=== PATIENT | male | born 1955 | race Caucasian/White ===

== ENCOUNTER 2021-08-20 06:45 | Outpatient (REF) | payer OTHER, SELFPAY ==
--- NOTE | ~2021-08-20 | XR_ITS ---
EXAMINATION: XR CHEST CLINICAL INFORMATION: Bump on anterior chest. COMPARISON: Most recent chest radiograph dated 06/16/2019 TECHNIQUE: 2 views of the chest were obtained. FINDINGS: No airspace consolidation. No pleural effusion or pneumothorax. No acute osseous abnormality. No abnormal soft tissue calcification or radiopaque foreign body. No significant findings in the region of the overlying marker. XR/XR chest 2V IMPRESSION: Unremarkable examination.
[2021-08-20 07:54] LABS: Alanine Aminotransferase 16 U/L (0-40); Albumin Level 4.2 g/dL (3.5-5.0); Alkaline Phosphatase 43 U/L (39-117); Anion Gap 10 (12-20); Aspartate Amino Transferase 18 U/L (5-37); Bilirubin Total 0.8 mg/dL (0.0-1.0); Blood Urea Nitrogen 17 mg/dL (9-16); Calcium 9.3 mg/dL (8.4-10.2); Carbon Dioxide 29 mmol/L (22-29); Chloride 106 mmol/L (96-108); Cholesterol 192 mg/dL; Estimated Glomerular Filt Rate > 60; Glucose Fasting 104 mg/dL (60-99); HDL Cholesterol 79 mg/dL; LDL Cholesterol Calculated 101 mg/dl; Potassium 4.1 mmol/L (3.3-5.1); Sodium 141 mmol/L (135-145); Total Protein 6.3 g/dL (6.5-8.0); Triglycerides 63 mg/dL
[2021-08-20 08:24] LABS: TSH reflex Free T4 3.23 uIU/mL (0.32-4.0)
[2021-08-20 09:31] LABS: Prostate Specific Antigen Scr 1.31 ng/mL (<0.05-4.0)
== END 2021-08-20 06:46 | disposition home or self-care (01) ==
LOC: HO.LAB 06:45
PROVIDERS: PCP Family Medicine; Visit Provider Family Medicine
DX: Z00.00 Encounter for general adult medical examination without abnormal findings (principal); Z12.5 Encounter for screening for malignant neoplasm of prostate; R22.2 Localized swelling, mass and lump, trunk
CPT/HCPCS: 36415; 71046; 80053; 80061; 84153; 84443

== ENCOUNTER 2021-09-02 07:04 | Outpatient (REF) | payer OTHER, SELFPAY ==
[2021-09-02 08:36] LABS: Estimated Average Glucose 100 mg/dL; Hemoglobin A1c % 5.1 %
[2021-09-02 08:59] LABS: Alanine Aminotransferase 18 U/L (0-40); Albumin Level 4.2 g/dL (3.5-5.0); Alkaline Phosphatase 42 U/L (39-117); Anion Gap 10 (12-20); Aspartate Amino Transferase 21 U/L (5-37); Bilirubin Total 0.6 mg/dL (0.0-1.0); Blood Urea Nitrogen 19 mg/dL (9-16); Calcium 9.5 mg/dL (8.4-10.2); Carbon Dioxide 31 mmol/L (22-29); Chloride 106 mmol/L (96-108); Estimated Glomerular Filt Rate > 60; Glucose Fasting 95 mg/dL (60-99); Potassium 4.5 mmol/L (3.3-5.1); Sodium 142 mmol/L (135-145); Total Protein 6.5 g/dL (6.5-8.0)
== END 2021-09-02 07:05 | disposition home or self-care (01) ==
LOC: HO.LAB 07:04
PROVIDERS: PCP Family Medicine; Visit Provider Family Medicine
DX: Z00.00 Encounter for general adult medical examination without abnormal findings (principal); R73.01 Impaired fasting glucose
CPT/HCPCS: 36415; 80053; 83036

== ENCOUNTER 2022-08-19 06:04 | Outpatient (REF) | payer MEDICARE, OTHER, SELFPAY ==
[2022-08-19 08:22] LABS: Estimated Average Glucose 100 mg/dL; Hemoglobin A1c % 5.1 %
[2022-08-19 08:30] LABS: Alanine Aminotransferase 16 U/L (0-40); Albumin Level 4.3 g/dL (3.5-5.0); Alkaline Phosphatase 45 U/L (39-117); Anion Gap 16 (12-20); Aspartate Amino Transferase 21 U/L (5-37); Bilirubin Total 0.9 mg/dL (0.0-1.0); Blood Urea Nitrogen 19 mg/dL (9-16); Calcium 9.4 mg/dL (8.4-10.2); Carbon Dioxide 27 mmol/L (22-29); Chloride 103 mmol/L (96-108); Cholesterol 182 mg/dL; Estimated Glomerular Filt Rate > 60; Glucose Fasting 98 mg/dL (60-99); HDL Cholesterol 73 mg/dL; LDL Cholesterol Calculated 91 mg/dl; Potassium 4.2 mmol/L (3.3-5.1); Sodium 142 mmol/L (135-145); Total Protein 6.9 g/dL (6.5-8.0); Triglycerides 90 mg/dL
[2022-08-19 08:34] LABS: TSH reflex Free T4 4.05 uIU/mL (0.32-4.0)
[2022-08-19 09:26] LABS: Free T4 (Free Thyroxine) 0.92 ng/dL (0.71-1.85)
== END 2022-08-19 06:05 | disposition home or self-care (01) ==
LOC: HO.LAB 06:04
PROVIDERS: PCP Family Medicine; Visit Provider Family Medicine
DX: Z00.00 Encounter for general adult medical examination without abnormal findings (principal); R73.01 Impaired fasting glucose
CPT/HCPCS: 36415; 80053; 80061; 83036; 84439; 84443

== ENCOUNTER 2022-08-20 09:57 | Outpatient (REF) | payer MEDICARE, OTHER, SELFPAY ==
[2022-08-20 15:11] LABS: Urine Cytology See Pathology rpt
[2022-08-20 15:29] LABS: Appearance Urine Clear; Color Urine Yellow; Glucose Urine UA Negative (Negative); Leukocyte Esterase Urine Negative (Negative); Nitrite Urine Negative (Negative); Specific Gravity - Urine 1.015 (1.005-1.025); Urine Blood Negative (Negative); Urine Ketones Negative (Negative); Urine Protein Negative (Neg-Trace)
== END 2022-08-20 09:58 | disposition home or self-care (01) ==
LOC: HO.LAB 09:57
PROVIDERS: Visit Provider Family Medicine
DX: Z00.00 Encounter for general adult medical examination without abnormal findings (principal); R35.0 Frequency of micturition
CPT/HCPCS: 81003; 87086; 88112

== ENCOUNTER 2022-09-15 08:17 | Outpatient (REF) | payer MEDICARE, OTHER, SELFPAY ==
[2022-09-15 10:13] LABS: Free T4 (Free Thyroxine) 0.89 ng/dL (0.71-1.85); Thyroid Stimulating Hormone 1.89 uIU/mL (0.32-4.0)
[2022-09-16 18:47] LABS: Triiodothyronine T3 Total 90 ng/dL (76-181)
== END 2022-09-15 08:18 | disposition home or self-care (01) ==
LOC: HO.LAB 08:17
PROVIDERS: PCP Family Medicine; Visit Provider Family Medicine
DX: E03.9 Hypothyroidism, unspecified (principal)
CPT/HCPCS: 36415; 84439; 84443; 84480

== ENCOUNTER 2024-03-15 13:57 | Outpatient (AMB) | payer MEDICARE, OTHER, SELFPAY ==
[2024-03-15 14:06] VITALS: BP 118/66; PULSE 55; O2SAT 97; BMI 23.6
--- NOTE | 2024-03-15 14:06 | A.OFFPC_ITS ---
Vital Signs 03/15/24 14:06 Height 6 ft 1 in Weight 179 lb BMI 23.6 BP 118/66 Blood Pressure Location Rt brachial Position Sitting Pulse 55 Pulse Source Pulse Oximeter Pulse Oximetry (%) 97 Oxygen Delivery Method Room Air Intake Visit Reasons: PE Intake Note: Patient is here for his physical today. Patient would like to discuss prostate problems, urinating more than usual. Allergies cat dander [CATS] Allergy (Unknown, Verified 03/15/24 14:09) RED EYES,DIFF BREATHING Medication List - Last Reconciled 03/15/24 by Lazaro Fields MD ascorbic acid (vitamin C) 1 g PO Q6H cholecalciferol (vitamin D3) 50 mcg PO DAILY Tobacco use date assessed: 03/15/24 Fall risk assessment: No Falls in past year Last assessed Fall Risk: 03/15/24 Dental Screening Dental Screen Date: 03/15/24 Did you have a dental visit in the last 12 months?: Yes Did you have a dental problem in the last 6 months where you did not have access to dental care?: No Was dental information given to patient?: Patient has dentist HPI PE HPI Details 68 y/o male presents for an extended exa m with f/u labs and health maint. No recent labs to review. Hx of elevated fasting glucose. A1c today 03/15/24 6.0%. Pt notes changes in his urinary patterns - he notes some increased urinary frequency and changes to his stream. He notes he is due for a colonoscopy. COUNT INCLUDES THE [facility] Surgical History History of appendectomy History of tonsillectomy and adenoidectomy Social History Housing: Condominium Patient Tobacco Use Status: Never used Tobacco e-Cigarette/Vaping Use: Never Used Second Hand Smoke Exposure: No service: No Current occupational status: retired Current occupational exposures/hazards: No Cognitive needs: No Hearing needs: No Vision needs: No Questionnaire PHQ-9 Over the last 2 weeks, how often have you been bothered by any of the following problems? 1. Little interest or pleasure in doing things: not at all 2. Feeling down, depressed, or hopeless: not at all 3. Trouble falling or staying asleep, or sleeping too much: not at all 4. Feeling tired or having little energy: not at all 5. Poor appetite or overeating: not at all 6. Feeling bad about yourself - or that you are a failure or have let yourself or your family down: not at all 7. Trouble concentrating on things, such as reading the newspaper or watching television: not at all 8. Moving or speaking so slowly that other people could have noticed. Or the opposite - being so fidgety or restless that you have been moving around a lot more than usual: not at all 9. Thoughts that you would be better off or of hurting yourself in some way: not at all Total score: 0 Depression Screening Interpretation: Negative Depression Screening Done: Yes 67688 - PHQ-9 Billing: Yes Source: Developed by Drs. Gurpreet Coe, Shahnaz Garcia, Brandon Otto and colleagues, with an educational anthony from [employer]. Thrive Questionnaire Date Thrive assessed: 03/15/24 I am a: Patient What is your living situation today?: I have a steady place to live Within the past 12 months, did the food you bought not last and you didn't have the money to get more?: Never true Within the past 12 months, did you worry whether your food would run out before you got money to buy more?: Never true Do you have trouble paying for medicines?: No Do you have trouble getting transportation to medical appointments?: No Do you have trouble paying your heating and electricity bill?: No Do you have trouble taking care of your child, family member or friend?: No Do you have trouble with day-to-day activities such as bathing, preparing meals, shopping, managing finances, etc.?: No Are you currently unemployed and looking for a job?: No Are you interested in more education?: No THRIVE Score: 0 AUDIT C Alcohol Use Questionnaire (AUDIT-C) 1. How often do you have a drink containing alcohol?: Monthly or less 2. How many drinks containing alcohol do you have on a typical day when you are drinking?: 1 or 2 3. How often do you have six or more drinks on one occasion?: Never Total Score: 1 TRACEE-7 AMB Questionnaire TRACEE-7 Date TRACEE - 7 assessed: 03/15/24 Feeling nervous, anxious, or on edge: 0 = Not at all Not being able to stop or control worryin = Not at all Worrying too much about different things: 0 = Not at all Trouble relaxin = Not at all Being so restless that it is hard to sit still: 0 = Not at all Becoming easily annoyed or irritable: 0 = Not at all Feeling afraid as if something awful might happen: 0 = Not at all Total TRACEE-7 score (0-4 normal; 5-9 mild; 10-14 moderate; 15-21 severe): 0 Source: Developed by Drs. Gurpreet Coe, Shahnaz Garcia, Brandon Otto and colleagues, with an educational anthony from [employer]. TRACEE-7 Assessment Billing TRACEE-7 Assessment Tool: TRACEE-7 Assessment 97575 Review of Systems Const Denies chills, Denies fatigue, Denies fever(s), Denies headache(s) and Denies we akness Eyes Denies change in vision ENT Denies dizziness, Denies headache(s), Denies hearing loss, Denies nasal congestion, Denies sinus pain, Denies sinus pressure and Denies sore throat Card Denies chest pain, Denies lightheadedness, Denies dyspnea and Denies other (palpitations) Resp Denies cough, Denies dyspnea and Denies wheezing GI Denies abdominal pain, Denies melena, Denies hematochezia, Denies change in bowel habits, Denies dyspepsia and Denies nausea Denies hematuria and Denies dysuria Musc Denies abnormal gait, Denies myalgias, Denies arthralgias, Denies numbness and Denies tingling Skin/Breast Denies rash, Denies unusual bruising and Denies wounds Neuro Denies abnormal gait, Denies dizziness, Denies headache(s), Denies memory loss, Denies numbness, Denies Sensory deficit (Neuro), Denies tingling and Denies weakness Psych Denies anxiety, Denies depression and Denies memory loss Endo Denies cold intolerance, Denies fatigue, Denies heat intolerance, Denies polydipsia and Denies polyuria Cali/Lymph Denies easy bleeding and Denies easy bruising Aller/Immun Denies wheezing Physical exam (Primary Care) Vital Signs: Last Vital Signs Pulse 55 03/15/24 14:06 BP 118/66 03/15/24 14:06 Pulse Ox 97 03/15/24 14:06 Oxygen Delivery Method Room Air 03/15/24 14:06 BMI result Body Mass Index 23.6 Tobacco/Smoking Status: Tobacco use Status Tobacco use date assessed 03/15/24 03/15/24 14:12 Patient Tobacco Use Status Never used Tobacco 03/15/24 14:08 e-Cigarette/Vaping Use Never Used 03/15/24 14:08 PHQ-9: PHQ-9 Score PHQ-9: Total score 0 03/15/24 14:21 Depression Screening Interpretation: Negative Thrive Assessment: Date of Thrive Assessment Date Thrive assessed 03/15/24 03/15/24 14:21 Const General: no acute distress, well developed, alert and awake Nutritional Appearance: well nourished Orientation/consciousness: patient oriented x3 HENMT Head: Yes normocephalic and Yes atraumatic Ears: hearing grossly normal bilaterally and TM's normal bilaterally General nose exam: Normal external nose present and Normal nares present Mouth: Normal oral and palatal mucosa present and moist mucous membranes Teeth and gingiva: dentition normal Throat: Yes posterior oropharynx normal Eyes General: appearance normal, both eyes and all related structures Pupils: Equal, round and reactive pupils present and Pupil accommodation reflex normal EOM: EOMs intact bilaterally Neck Neck: Yes normal visual inspection, Yes no lymphadenopathy and Yes trachea midline Thyroid: Thyroid normal Carotids: no bruits Lymphatic: no lymphadenopathy noted Chest Chest palpation & inspection: normal inspection of the chest Resp Effort & Inspection: normal respiratory effort Auscultation: clear to auscultation bilaterally Cardio Rate: regular rate Rhythm: regular rhythm Heart sounds: S1 normal heart sound present, S2 normal heart sound present, no gallops, no murmurs and no rubs Bruits: no abdominal aortic bruits and no carotid bruits GI Palpation (GI): No Abdominal aortic bruit present, Soft to palpation, nontender, No hepatosplenomegaly present and No Rebound tenderness present Auscultation: normal bowel sounds General: Yes no CVA tenderness Back/Spine/Pelvis Back: no CVA tenderness Cervical Spine: cervical ROM normal and No Cervical spine tenderness Thoracic/Lumbar Spine: thoraco-lumbar ROM normal, No pain with thoraco-lumbar ROM, No thoracic spinal tenderness and No lumbar spinal tenderness Skin Lesions: no lesions Rashes: no rashes Trauma: no lacerations or abrasions Wounds: no wounds Nails: normal Neuro General: patient oriented x3 Cranial nerves: Yes Equal, round and reactive pupils present Cognition (Neuro): normal cognition Gait exam (Neuro): Normal gait present Motor exam (neuro): 5/5 motor strength present throughout Sensory Exam: No Sensory deficit (Neuro) Deep tendon reflexes (DTR's): Right patellar reflex intensity grade: 2+ and Left patellar reflex intensity grade: 2+ Extrem General: Yes normal to inspection and No edema Psych Appearance: grossly normal Affect: normal affect Attitude: cooperative Thought process: Normal thought process present Results AMB Hemoglobin A1c AMB Hemoglobin A1c 6.0 % Last Edit by Silvia Cornell CMA on 03/15/24 14:38 Assessment and Plan Assessment & Plan (1) Urinary frequency: Code(s): R35.0 - Frequency of micturition (2) Pre-diabetes: Code(s): R73.03 - Prediabetes Plan: A1c?6.0%?is?pre?diabetes?range. Encouraged?diet?lower?in?sugars?and?starches Continue?a?healthy?weight?and?plenty?of?exercise Will?repeat?in?a?few?months (3) Screening for prostate cancer: Code(s): Z12.5 - Encounter for screening for malignant neoplasm of prostate Plan: PSA?has?been?elevated?in?the?past?though?his?repeat?level?was?within?normal?rang e He?is?noting?decreased?urine?stream?and?some?frequency Will?repeat?PSA?but?will?refer?patient?to?urology. Will?also?trial?tamsulosin (4) Screening for colon cancer: Code(s): Z12.11 - Encounter for screening for malignant neoplasm of colon Plan: Had?referred?patient?to?Gastroenterology?in?2 022?as?he?was?due?for?10?year?colonoscopy. Now?is?overdue Referred?him?again?to?gastroenterology?and?gave?him?phone?number. (5) Adult general medical exam: Code(s): Z00.00 - Encounter for general adult medical examination without abnormal findings Plan: 68-year-old?male?presents?for?extended?exam Orders: Orders Complete Blood Count Auto Diff Today Z00.00 - Encounter for general adult medical examination without abnormal findings Microalbumin, Random (w Creat) Today I10 - Essential (primary) hypertension TSH reflex Free T4 Today Z00.00 - Encounter for general adult medical examination without abnormal findings UA and rflx microscopic Today Z00.00 - Encounter for general adult medical examination without abnormal findings AMB Hemoglobin A1c Today Z13.9 - Encounter for screening, unspecified Comprehensive [place]. Panel Fast Today Z00.00 - Encounter for general adult medical examination without abnormal findings Lipid Panel Today Z00.00 - Encounter for general adult medical examination without abnormal findings Prostate Specific Antigen Scr Today Z12.5 - Encounter for screening for malignant neoplasm of prostate Vitamin D 25-OH Total Today E55.9 - Vitamin D deficiency, unspecified Medications: New tamsulosin 0.4 mg PO DAILY 90 days 90 caps 2RF Coding Level of Care Code Est Pt Level 4 (45408) Diagnoses Urinary frequency R35.0 Pre-diabetes R73.03 Screening for prostate cancer Z12.5 Screening for colon cancer Z12.11 Adult general medical exam Z00.00 Additional Codes TRACEE-7 Assessment Billing - TRACEE-7 Assessment Tool: TRACEE-7 Assessment 54006 ([id number])
== END 2024-03-15 15:07 | disposition home or self-care (01) ==
PROVIDERS: PCP Family Medicine; Visit Provider Family Medicine
DX: Z00.00 Encounter for general adult medical examination without abnormal findings (principal); R35.0 Frequency of micturition; R73.03 Prediabetes; Z12.5 Encounter for screening for malignant neoplasm of prostate; Z12.11 Encounter for screening for malignant neoplasm of colon
CPT/HCPCS: 83036; 99213; 99397

== ENCOUNTER 2024-03-17 06:43 | Outpatient (REF) | payer MEDICARE, OTHER, SELFPAY ==
[2024-03-17 07:01] LABS: MANUAL DIFF FLAG NO
[2024-03-17 07:16] LABS: Basophils Percent Auto 0.7 % (0-2); Eosinophils Absolute Auto 0.1 X10*3/uL (0.0-0.4); Eosinophils Percent Auto 2.5 % (0-4); Hematocrit 40.8 % (42.0-52.0); Hemoglobin 13.4 g/dl (14.0-18.0); Imm Gran Abs Auto 0.01 X10*3/uL (0.00-0.03); Imm Gran Pct Auto 0.2 % (0.0-0.4); Lymphocytes Absolute Auto 2.4 X10*3/uL (1.2-4.9); Lymphocytes Percent Auto 41.4 % (20-40); Mean Corpuscular HGB Conc 32.8 g/dl (31.0-36.0); Mean Corpuscular Volume 91.5 fL (80.0-98.0); Mean Platelet Volume 10.1 fL (9.4-12.4); Monocytes Absolute Auto 0.4 X10*3/uL (0.1-1.2); Monocytes Percent Auto 7.7 % (2-11); Neutrophils Absolute Auto 2.7 x10*3/uL (2.0-8.3); Neutrophils Percent Auto 47.5 % (45-73); Platelet Count 223 X10*3/uL (160-400); Red Blood Count 4.46 X10*6/uL (4.60-5.80); White Blood Count 5.7 X10*3/uL (4.8-10.8)
[2024-03-17 07:54] LABS: Alanine Aminotransferase 16 U/L (0-40); Albumin Level 4.2 g/dL (3.5-5.0); Alkaline Phosphatase 50 U/L (39-117); Anion Gap 14 (12-20); Aspartate Amino Transferase 19 U/L (5-37); Bilirubin Total 0.7 mg/dL (0.0-1.0); Blood Urea Nitrogen 21 mg/dL (9-16); Calcium 9.6 mg/dL (8.4-10.2); Carbon Dioxide 28 mmol/L (22-29); Chloride 103 mmol/L (96-108); Cholesterol 188 mg/dL (<200); Estimated Glomerular Filt Rate > 60; Glucose Fasting 93 mg/dL (60-99); HDL Cholesterol 70 mg/dL (>40); LDL Cholesterol Calculated 106 mg/dL (<100); Potassium 4.6 mmol/L (3.3-5.1); Sodium 140 mmol/L (135-145); Triglycerides 64 mg/dL (<150)
[2024-03-17 08:03] LABS: Prostate Specific Antigen Scr 2.02 ng/mL (<0.05-4.0)
[2024-03-17 08:13] LABS: TSH reflex Free T4 2.66 uIU/mL (0.32-4.0); Vitamin D 25-OH Total 64.7 ng/mL (>30)
[2024-03-17 09:32] LABS: Appearance Urine Clear; Color Urine Yellow; Glucose Urine UA Negative (Negative); Leukocyte Esterase Urine Negative (Negative); Nitrite Urine Negative (Negative); PH 5.5 (5.0-9.0); Urine Blood Negative (Negative); Urine Ketones Negative (Negative); Urine Protein Negative (Neg-Trace)
[2024-03-17 10:11] LABS: Creatinine Urine 218.67 mg/dL
== END 2024-03-17 06:44 | disposition home or self-care (01) ==
LOC: HO.LAB 06:43
PROVIDERS: PCP Family Medicine; Visit Provider Family Medicine
DX: Z00.00 Encounter for general adult medical examination without abnormal findings (principal); Z12.5 Encounter for screening for malignant neoplasm of prostate; E55.9 Vitamin D deficiency, unspecified; I10 Essential (primary) hypertension
CPT/HCPCS: 36415; 80053; 80061; 81003; 82043; 82306; 82570; 84153; 84443; 85025

== ENCOUNTER 2024-04-12 09:29 | Outpatient (AMB) | payer MEDICARE, OTHER, SELFPAY ==
--- NOTE | 2024-04-12 09:25 | MHC.PC.OV ---
Intake Visit Reasons: f/u cpe labs Intake Note: Patient is scheduled to follow up on labs today. Allergies cat dander [CATS] Allergy (Unknown, Verified 04/12/24 09:26) RED EYES,DIFF BREATHING Tobacco use date assessed: 04/12/24 Fall risk assessment: No Falls in past year Last assessed Fall Risk: 04/12/24 Dental Screening Dental Screen Date: 03/15/24 HPI f/u cpe labs HPI Details 68 y/o male presents to f/u CPE-labs via telemedicine. Labs were drawn 03/17/24. Reviewed labs with pt. Mild anemia. Other cell lines are fine. Triglycerides 64. TC 188. LDL 106. HDL 70. HPI Comments History of Present Illness Details Documentation assistance for Lazaro Fields MD, was provided by Jose Oreilly, Hand Inserter Operator on 04/12/2024 at 10:49 AM EST. I, Dr. Fields, have read, observed, and verified documentation. [facility] Surgical History History of tonsillectomy and adenoidectomy History of appendectomy Social History Housing: Condominium Patient Tobacco Use Status: Never used Tobacco e-Cigarette/Vaping Use: Never Used Second Hand Smoke Exposure: No service: No Current occupational status: retired Current occupational exposures/hazards: No Cognitive needs: No Hearing needs: No Vision needs: No Questionnaire Thrive Questionnaire Date Thrive assessed: 03/15/24 TRACEE-7 AMB Questionnaire TRACEE-7 Date TRACEE - 7 assessed: 03/15/24 Source: Developed by Drs. Gurpreet Coe, Shahnaz Garcia, Brandon Otto and colleagues, with an educational anthony from [employer]. Physical exam (Primary Care) Tobacco/Smoking Status: Tobacco use Status Tobacco use date assessed 04/12/24 04/12/24 09:27 Patient Tobacco Use Status Never used Tobacco 04/12/24 09:27 e-Cigarette/Vaping Use Never Used 04/12/24 09:27 Thrive Assessment: Date of Thrive Assessment Date Thrive assessed 03/15/24 04/12/24 09:27 Telehealth Telehealth Telehealth Platform: Telephone Location of provider rendering services: practice address Location of patient: address on file Patient Identification confirmed using: Name, : Yes Telehealth method: voice only Patient verbally consented to treatment: Yes Patient verbally consented to billing insurance company: Yes Patient informed of any privacy concerns related to visit: Yes Minutes spent on Phone/Video with Pt.: 17 Assessment and Plan Assessment & Plan (1) Mild anemia: Code(s): D64.9 - Anemia, unspecified Plan: Mild?normocytic?anemia. His?other?cell?lines?are?within?normal?range Will?repeat?this?along?with?additional?studies?to?investigate. (2) Pre-diabetes: Code(s): R73.03 - Prediabetes Plan: A1c?was?6.0%?at?last?check?and?he?will?be?due?to?repeat?this?in?a?couple?of?months. I?advised?a?diet?lower?in?sugars?and?starches Will?follow (3) Screening for prostate cancer: Code(s): Z12.5 - Encounter for screening for malignant neoplasm of prostate Plan: PSA?is?within?normal?range He?is?having?urinary?frequency?however. Referred?to?urology (4) Urinary frequency: Code(s): R35.0 - Frequency of micturition Orders: Orders Complete Blood Count Auto Diff Today D64.9 - Anemia, unspecified, Z00.00 - Encounter for general adult medical examination without abnormal findings Reticulocyte Count Today D64.9 - Anemia, unspecified IRON PROFILE Today D64.9 - Anemia, unspecified Hemoglobin A1c Today R73.01 - Impaired fasting glucose Comprehensive [place]. Panel Fast Today R73.03 - Prediabetes, Z00.00 - Encounter for general adult medical examination without abnormal findings Referrals Urology Referral R35.0 - Frequency of micturition Coding Level of Care Code Tele Est Pt Level 2 (02081) Diagnoses Mild anemia D64.9 Pre-diabetes R73.03 Screening for prostate cancer Z12.5 Urinary frequency R35.0
== END 2024-04-12 17:37 | disposition home or self-care (01) ==
LOC: HO.HMGFM 09:29
PROVIDERS: PCP Family Medicine; Visit Provider Family Medicine
DX: D64.9 Anemia, unspecified (principal); R73.03 Prediabetes; Z12.5 Encounter for screening for malignant neoplasm of prostate; R35.0 Frequency of micturition
CPT/HCPCS: 99442

== ENCOUNTER 2024-06-07 08:54 | Outpatient (AMB) | payer MEDICARE, OTHER, SELFPAY ==
--- NOTE | 2024-06-07 08:57 | MHC.OFFVIS ---
Intake Visit Reasons: frequency of micturation Intake Note: New Patient presents for initial visit for Urinary Frequency and weak stream Urology Medications: Tamsulosin Blood Thinner: none PVR: 29ml's Sludge Control Attendant Required: No Accompanied by: Self / Same As Patient Allergies cat dander [CATS] Allergy (Unknown, Verified 06/07/24 20:39) RED EYES,DIFF BREATHING Medication List - Last Reconciled 06/07/24 by JERMAINE Barone ascorbic acid (vitamin C) 1 g PO Q6H [id number] I-[id number] 200 mcg-15 mcg- 5 mg-1 mg (PreserVision AREDS 2 Plus Multivit) caps PO tamsulosin 0.8 mg (2 x 0.4 mg) PO DAILY 90 days HPI Comments Details: Shilo is a very pleasant 69-year-old male patient of Dr. Fields. He presents to the office today as a new patient for ongoing lower urinary tract symptoms. In discussion with the patient today he reports noting ongoing issues with his urinary frequency. He reports symptoms started approximately 2 years ago with urinary frequency. He reports having followed up with his PCP at which time a urinalysis and PSA was ordered and noted to be within normal limits. He reports following up with PCP again in December in discussing weak urinary stream at which time he was started on Flomax and referral was made for urology for further assessment evaluation. He reports since initiation of Flomax with PCP he has noted an improvement in his lower urinary tract symptoms over the last 5 months. He reports significant improvement in urinary frequency throughout the day however continues with episodes of nocturia up to 4 times per night. Discussed at length potential causes for lower urinary tract patient is experiencing. In office urinalysis results reviewed with the patient today. PVR 29 mL. Discussed obtaining retroperitoneal ultrasound for further assessment evaluation. Discussed increase in Flomax verses trial of different alpha-may. He otherwise denies incontinence, hematuria, dysuria, foul smelling urine, changes to urinary stream, flank pain, fever, and or chills. In review of patient's chart it appears PSAs are as follows: 09/05 1.3, 04/08 2.0 PFSH Surgical History History of tonsillectomy and adenoidectomy History of appendectomy Social History Housing: Condominium Patient Tobacco Use Status: Never used Tobacco e-Cigarette/Vaping Use: Never Used Second Hand Smoke Exposure: No service: No Current occupational status: retired Current occupational exposures/hazards: No Cognitive needs: No Hearing needs: No Vision needs: No Review of Systems Const All systems reviewed & are unremarkable except as noted in HPI and below Physical Exam Const General: cooperative, healthy appearing, comfortable, no acute distress, well developed, alert and awake Orientation/consciousness: patient oriented x3 Limitations: no limitations HEENT Head: Yes normal to inspection, Yes normocephalic and Yes atraumatic Ears: hearing grossly normal bilaterally Eyes General: appearance normal, both eyes and all related structures Neck Neck: Yes normal visual inspection and Yes trachea midline Chest Chest palpation & inspection: normal inspection of the chest Resp Effort & Inspection: normal respiratory effort and able to speak in complete sentences Cardio Rate: regular rate GI Inspection: Yes normal to inspection General: Yes no CVA tenderness Back/Spine/Pelvis Back: no CVA tenderness Skin General skin exam: no rashes or lesions noted Neuro General: patient oriented x3 Extrem General: Yes normal to inspection Psych Appearance: grossly normal and well kempt Mental Status: mental status grossly normal Speech and movement: Normal speech and movement present and Clear speech present Affect: normal affect Attitude: cooperative Thought process: Normal thought process present Thought content: Normal thought content present Insight: Fair insight present (Psych) Judgement: Fair judgement present (Psych) Office Procedures Post Void Residual Post Residual Void Post Void Residual (PVR): 29 [id number] Void Residual by ultrasound Results AMB Urinalysis, Automated UA Leukoctes 0 Rafael/uL Last Edit by Brit Go on 06/07/24 09:12 UA Nitrite Negative Last Edit by Brit Go on 06/07/24 09:12 UA Urobilinogen 0.2 mg/dL Last Edit by Brit Go on 06/07/24 09:12 UA Protein 0 mg/dL Last Edit by Brit Go on 06/07/24 09:12 UA pH 6.0 Last Edit by Brit Go on 06/07/24 09:12 UA Blood 0 Fran/uL Last Edit by Brit Go on 06/07/24 09:12 UA Specific [place] 1.015 Last Edit by Brit Go on 06/07/24 09:12 UA Ketone Negative Last Edit by Brit Go on 06/07/24 09:12 UA Bilirubin 0 mg/dL Last Edit by Brit Go on 06/07/24 09:12 UA Glucose 0 mg/dL Last Edit by Brit Go on 06/07/24 09:12 Results Reviewed Results Reviewed: Laboratory Last Values Urine pH (Auto) 6.0 06/07/24 08:59 Specific [place] (Auto) 1.015 06/07/24 08:59 Urine Protein (Auto) 0 mg/dL 06/07/24 08:59 Glucose (UA)(Auto) 0 mg/dL 06/07/24 08:59 Urine Ketones (Auto) Negative 06/07/24 08:59 Urine Blood (Auto) 0 Fran/uL 06/07/24 08:59 Urine Nitrite (Auto) Negative 06/07/24 08:59 Urine Bilirubin (Auto) 0 mg/dL 06/07/24 08:59 Urine Urobilinogen (Auto) 0.2 mg/dL 06/07/24 08:59 Leukocyte Esterase (Auto) 0 Rafael/uL 06/07/24 08:59 Assessment & Plan Assessment & Plan (1) Urinary frequency: Code(s): R35.0 - Frequency of micturition Category: Medical Plan In office urinalysis results reviewed with the patient today; as noted above. PVR 29 mL. Will obtain retroperitoneal ultrasound for further assessment evaluation. Discussed bladder triggers/irritants. Discussed lifestyle modifications to assist with lower urinary tract symptoms patient is experiencing. Will increase Flomax to 0.8 mg daily; refill provided. Discussed possible near future in office cystoscopy if symptoms persist and/or worsen. Follow-up in 1-3 months with imaging to be completed prior; or sooner with any issues, concerns, and or questions. Orders: Orders AMB Urinalysis Automated Today Z13.9 - Encounter for screening, unspecified US retroperitoneal comp Today R35.0 - Frequency of micturition, R35.1 - Nocturia, R39.12 - Poor urinary stream AMB Post Void Residual by ultrasound Today R35.0 - Frequency of micturition Medications: Changed From tamsulosin 0.4 mg PO DAILY 90 caps 2RF 90 days To tamsulosin This is an increase in dose 0.8 mg (2 x 0.4 mg) PO DAILY 180 caps 2RF 90 days Patient Instructions: The patient had an opportunity to ask questions regarding the treatment plan. All questions were answered. Physical exam, labs, and imaging were discussed and reviewed in detail. As well as risks, benefits, and discussion of treatment choices. No major barriers to understanding were identified. The patient expressed understanding and agreement with the above treatment plan. The patient was made aware they should contact our office by phone for worsening of their current condition, the appearance of new symptoms, or with any questions or concerns. Compliance is encouraged with any medications and follow up testing that is ordered. It is a privilege to be allowed the opportunity to participate in? your urological care.? Again, if you have any questions or concerns If you have any questions or concerns please do not hesitate to contact me. The office is [phone]. This note is constructed using voice recognition software. While every effort has been made to ensure accuracy protective signal operator errors may have been included. Yours sincerely, GENIE Barone-DEDRA Coding Level of Care Code New Pt Level 3 (09804) Diagnoses Urinary frequency R35.0 CPT Codes Post Residual Void - PVR CPT Code: 71619-Qirj Void Residual by ultrasound ([id number])
== END 2024-06-07 09:38 | disposition home or self-care (01) ==
PROVIDERS: PCP Family Medicine; Visit Provider Nurse Practitioner Family
DX: Z13.9 Encounter for screening, unspecified (principal); R35.0 Frequency of micturition
CPT/HCPCS: 99203

== ENCOUNTER → 2024-06-07 08:54 | Outpatient (BNVA) | payer MEDICARE, OTHER, SELFPAY | PROVIDERS: PCP Family Medicine; Visit Provider Nurse Practitioner Family | DX: R35.0 Frequency of micturition (principal); Z79.899 Other long term (current) drug therapy | CPT/HCPCS: 51798; 81003; 99202 ==

== ENCOUNTER 2024-06-23 07:25 | Outpatient (REF) | payer MEDICARE, OTHER, SELFPAY ==
[2024-06-23 07:38] LABS: MANUAL DIFF FLAG NO
[2024-06-23 08:22] LABS: Estimated Average Glucose 105 mg/dL; Hemoglobin A1c % 5.3 % (<6.0)
[2024-06-23 08:42] LABS: Basophils Percent Auto 0.7 % (0-2); Eosinophils Absolute Auto 0.2 X10*3/uL (0.0-0.4); Eosinophils Percent Auto 4.1 % (0-4); Hematocrit 39.7 % (42.0-52.0); Hemoglobin 13.4 g/dl (14.0-18.0); Imm Gran Abs Auto 0.01 X10*3/uL (0.00-0.03); Imm Gran Pct Auto 0.2 % (0.0-0.4); Immature Retic Fraction 8.2 % (2.3-13.4); Lymphocytes Absolute Auto 2.5 X10*3/uL (1.2-4.9); Mean Corpuscular HGB Conc 33.8 g/dl (31.0-36.0); Mean Corpuscular Hemoglobin 31.1 pg (27.0-33.0); Mean Corpuscular Volume 92.1 fL (80.0-98.0); Mean Platelet Volume 10.5 fL (9.4-12.4); Monocytes Absolute Auto 0.5 X10*3/uL (0.1-1.2); Monocytes Percent Auto 9.4 % (2-11); Neutrophils Absolute Auto 2.4 x10*3/uL (2.0-8.3); Neutrophils Percent Auto 41.6 % (45-73); Platelet Count 221 X10*3/uL (160-400); Red Blood Count 4.31 X10*6/uL (4.60-5.80); Red Cell Distribution Width 13.4 % (11.0-16.0); Retic HGB Equivalent 34.6 pg (30.0-35.0); Reticulocyte Percent 1.3 % (0.5-1.8); Reticulocytes Absolute 0.057 X10*6/uL (0.026-0.095); White Blood Count 5.7 X10*3/uL (4.8-10.8)
[2024-06-23 08:51] LABS: Alanine Aminotransferase 20 U/L (0-40); Alkaline Phosphatase 40 U/L (39-117); Anion Gap 8 (12-20); Aspartate Amino Transferase 25 U/L (5-37); Bilirubin Total 0.4 mg/dL (0.0-1.0); Blood Urea Nitrogen 21 mg/dL (9-16); Calcium 9.6 mg/dL (8.4-10.2); Carbon Dioxide 31 mmol/L (22-29); Chloride 107 mmol/L (96-108); Estimated Glomerular Filt Rate > 60; Glucose Fasting 88 mg/dL (60-99); Iron 100 mcg/dL (45-160); Percent Iron Saturation 38 % (15-50); Potassium 4.4 mmol/L (3.3-5.1); Sodium 142 mmol/L (135-145); Total Iron Binding Capacity 261 mcg/dL (228-428); Total Protein 6.7 g/dL (6.5-8.0); Unsaturated Iron Binding 161 ug/dL
== END 2024-06-23 07:26 | disposition home or self-care (01) ==
LOC: HO.LAB 07:25
PROVIDERS: PCP Family Medicine; Visit Provider Family Medicine
DX: Z00.00 Encounter for general adult medical examination without abnormal findings (principal); D64.9 Anemia, unspecified; R73.03 Prediabetes; R73.01 Impaired fasting glucose
CPT/HCPCS: 36415; 80053; 83036; 83540; 85025; 85045

== ENCOUNTER 2024-06-28 08:44 | Outpatient (AMB) | payer MEDICARE, OTHER, SELFPAY ==
--- NOTE | 2024-06-28 08:50 | MHC.PC.OV ---
Vital Signs 06/28/24 08:57 Height 6 ft 1 in Weight 175 lb 8 oz BMI 23.2 BP 104/60 Blood Pressure Location Lt brachial Position Sitting Respiration 16 Pulse 63 Pulse Source Pulse Oximeter Temp 97.4 F Temp Source Tympanic Pulse Oximetry (%) 99 Oxygen Delivery Method Room Air Intake Visit Reasons: f/u mild anemia, pre-diabetes, labs Intake Note: follow up for mild anemia and pre-diabetes/ labs Allergies cat dander [CATS] Allergy (Unknown, Verified 06/28/24 08:55) RED EYES,DIFF BREATHING Tobacco use date assessed: 04/12/24 Dental Screening Dental Screen Date: 03/15/24 HPI f/u mild anemia, pre-diabetes, labs HPI Details 69 y/o male presents to f/u mild anemia, pre-diabetes, labs. Labs drawn 06/23/24. Reviewed labs with pt. Ongoing mild anemia. Iron levels are fine. A1c 5.3%. HPI Comments History of Present Illness Details Documentation assistance for Lazaro Fields MD, was provided by Jose Oreilly, [employer] on 06/28/2024 at 10:08 AM EST. I, Dr. Fields, have read, observed, and verified documentation. [facility] Surgical History History of tonsillectomy and adenoidectomy History of appendectomy [facility] Tobacco Use Status: Never used Tobacco e-Cigarette/Vaping Use: Never Used Second Hand Smoke Exposure: No service: No Current occupational status: retired Current occupational exposures/hazards: No Cognitive needs: No Hearing needs: No Vision needs: No Questionnaire Thrive Questionnaire Date Thrive assessed: 03/15/24 TRACEE-7 AMB Questionnaire TRACEE-7 Date TRACEE - 7 assessed: 03/15/24 Source: Developed by Drs. Gurpreet Coe, Shahnaz Garcia, Brandon Otto and colleagues, with an educational anthony from [employer]. Review of Systems Const Denies chills, Denies fatigue, Denies fever(s), Denies headache(s) and Denies weakness ENT Denies dizziness and Denies headache(s) Card Denies dyspnea Resp Denies cough, Denies dyspnea, Denies wheezing and Denies other (shortness of breath) Musc Denies numbness and Denies tingling Neuro Denies dizziness, Denies headache(s), Denies numbness, Denies tingling and Denies weakness Psych Denies anxiety and Denies depression Endo Denies fatigue Aller/Immun Denies wheezing Physical exam (Primary Care) Vital Signs: Last Vital Signs Temp 97.4 F 06/28/24 08:57 Pulse 63 06/28/24 08:57 Resp 16 06/28/24 08:57 BP 104/60 06/28/24 08:57 Pulse Ox 99 06/28/24 08:57 Oxygen Delivery Method Room Air 06/28/24 08:57 BMI result Body Mass Index 23.2 Tobacco/Smoking Status: Tobacco use Status Tobacco use date assessed 04/12/24 06/28/24 08:51 Patient Tobacco Use Status Never used Tobacco 06/28/24 08:51 e-Cigarette/Vaping Use Never Used 06/28/24 08:51 Thrive Assessment: Date of Thrive Assessment Date Thrive assessed 03/15/24 06/28/24 08:51 Const General: well developed; No acute distress Nutritional Appearance: well nourished Orientation/consciousness: patient oriented x3 HENMT Head: Yes normocephalic and Yes atraumatic Eyes General: appearance normal, both eyes and all related structures Pupils: Equal, round and reactive pupils present EOM: EOMs intact bilaterally Resp Effort & Inspection: normal respiratory effort Auscultation: clear to auscultation bilaterally Cardio Rate: regular rate Rhythm: regular rhythm Heart sounds: S1 normal heart sound present, S2 normal heart sound present, no gallops, no murmurs and no rubs Neuro General: patient oriented x3 and gait normal Cranial nerves: Yes Equal, round and reactive pupils present Psych Affect: normal affect Assessment and Plan Assessment & Plan (1) Mild anemia: Code(s): D64.9 - Anemia, unspecified Plan: Persistence?of?mild?normocytic?anemia Retic?count?is?a?little?inappropriately?low Iron?levels?are?within?normal?range Renal?function?is?normal He?had?had?some?abnormalities?of?thyroid?level?in?the?past?though?this?was?not?checked?with?current?lab?work Unclear?cause?and?may?be?normal?variant Patient?is?concerned?about?his?lab?values?however We?will?repeat?in?3?months?and?if?still?abnormal?or?worse,?he?would?like?a?referral?to?Hematology-Oncology (2) Pre-diabetes: Code(s): R73.03 - Prediabetes Plan: A1c?back?in?normal?range Continue?ongoing?diet?low?in?sugars?and?starches Orders: Orders Vitamin B12 and Folate Today D64.9 - Anemia, unspecified, E53.8 - Deficiency of other specified B group vitamins Reticulocyte Count Today D64.9 - Anemia, unspecified Free T4 (Free Thyroxine) Today E03.9 - Hypothyroidism, unspecified, R79.89 - Other specified abnormal findings of blood chemistry Triiodothyronine T3 Total Today E03.9 - Hypothyroidism, unspecified, R79.89 - Other specified abnormal findings of blood chemistry Comprehensive [place]. Panel Fast Today R73.01 - Impaired fasting glucose, Z00.00 - Encounter for general adult medical examination without abnormal findings Complete Blood Count Auto Diff Today D64.9 - Anemia, unspecified, Z00.00 - Encounter for general adult medical examination without abnormal findings IRON PROFILE Today D64.9 - Anemia, unspecified Hemoglobin A1c Today R73.01 - Impaired fasting glucose, R73.03 - Prediabetes Thyroid Stimulating Hormone Today E03.9 - Hypothyroidism, unspecified, R79.89 - Other specified abnormal findings of blood chemistry Coding Level of Care Code Est Pt Level 3 (49353) Diagnoses Mild anemia D64.9 Pre-diabetes R73.03
[2024-06-28 08:57] VITALS: BP 104/60; PULSE 63; RESP 16; TEMP 36.3; O2SAT 99; BMI 23.2
== END 2024-06-28 10:08 | disposition home or self-care (01) ==
PROVIDERS: PCP Family Medicine; Visit Provider Family Medicine
DX: D64.9 Anemia, unspecified (principal); R73.03 Prediabetes
CPT/HCPCS: 99213

== ENCOUNTER 2024-07-25 09:47 | Outpatient (REF) | payer MEDICARE, OTHER, SELFPAY ==
--- NOTE | ~2024-07-25 | US_ITS ---
EXAMINATION: US RETROPERITONEAL COMPLETE (RENAL) CLINICAL INFORMATION: Frequency of micturition. COMPARISON: None available. TECHNIQUE: Real-time imaging of the kidneys and bladder. FINDINGS: RIGHT KIDNEY: 13.7 x 4.2 x 5.4 cm (SAG x AP x TRV). The kidney is normal in size, contour, and echogenicity. Renal cortical thickness is normal. No calculi or focal parenchymal lesions. Renal pelvis is dilated without caliectasis. No gross hydronephrosis. LEFT KIDNEY: 12.2 x 7.1 x 5.8 cm (SAG x AP x TRV). The kidney is normal in size, contour, and echogenicity. Renal cortical thickness is normal. No renal calculi or hydronephrosis. Two cortical echogenic foci are seen measuring 4 mm in size each, one in the mid kidney and one at the lower pole which has appearances consistent with benign tiny angiomyolipomas. BLADDER: Partially distended. Bilateral ureteral jets are demonstrated. Prevoid bladder volume is 189 mL. Postvoid bladder volume is 12 mL. ADDITIONAL FINDINGS: Mild BPH at 39 mL. US/US retroperitoneal comp IMPRESSION: 1. Mild BPH with 39 mL postvoid residual. 2. Two tiny echogenic foci in the left kidney consistent with benign angiomyolipomas. A follow-up ultrasound is recommended in one year's time to document the stability of these findings. 3. Mild dilatation of the right renal pelvis without gross hydronephrosis. Electronically signed by: Fer Waite MD 08/03/2024 01:19 PM EDT
== END 2024-07-25 09:48 | disposition home or self-care (01) ==
LOC: HO.US 09:47
PROVIDERS: PCP Family Medicine; Visit Provider Nurse Practitioner Family
DX: R35.0 Frequency of micturition (principal); R35.1 Nocturia; R39.12 Poor urinary stream
CPT/HCPCS: 76770

== ENCOUNTER 2024-08-08 11:24 | Outpatient (AMB) | payer MEDICARE, OTHER, SELFPAY ==
--- NOTE | 2024-08-08 11:30 | A.OFFVIS_ITS ---
Intake Visit Reasons: 2m/US(set) Intake Note: Patient presents for follow up visit on: Urinary Frequency, weak stream, and ultrasound results Imaging Completed: 07/25/24 Urology Medications: Tamsulosin Blood Thinner: none PVR: 25ml's Guest Request Runner Required: No Accompanied by: Self / Same As Patient Allergies cat dander [CATS] Allergy (Unknown, Verified 08/08/24 12:01) RED EYES,DIFF BREATHING Medication List - Last Reconciled 08/08/24 by JERMAINE Barone ascorbic acid (vitamin C) 1 g PO Q6H cholecalciferol (vitamin D3) 25 mcg PO DAILY [id number] [id number] 200 mcg-15 mcg- 5 mg-1 mg (PreserVision AREDS 2 Plus Multivit) caps PO tamsulosin 0.8 mg (2 x 0.4 mg) PO DAILY 90 days HPI Comments Details: Shilo is a very pleasant 69-year-old male patient of Dr. Fields is accompanied by his significant other at today's office visit. He presents to the office today for follow-up. Of note, patient was seen approximately 2 months ago as a new patient for ongoing lower urinary tract symptoms at which time a retroperitoneal ultrasound was ordered for further assessment evaluation. These results were reviewed with the patient today. Bilateral kidneys with no hydronephrosis or renal calculi. Left kidney with 2 cortical echogenic foci seen measuring 4 mm in size, 1 in the middle kidney and 1 in the lower pole which appears consistent with a benign tiny angiolipoma is per radiology report. The bladder is partially distended. Bilateral ureteral jets are demonstrated. Pre void bladder volume is approximately 200 mL. Postvoid bladder volume is approximately 10 mL. Mild BPH at 40 mL. In discussion with the patient today he feels his lower urinary tract symptoms of urinary frequency and nocturia have significantly improved with increase in Flomax to 0.8 mg daily. He currently denies any bothersome urinary issues or concerns. He denies incontinence, hematuria, dysuria, foul smelling urine, changes to urinary stream, flank pain, fever, and or chills. In office urinalysis results reviewed with the patient today. PVR 25 mL. We discussed potential near future in office cystoscopy if symptoms arise and or worsen. We also discussed initiation of possible finasteride given enlarged prostate noted on imaging. In review of patient's chart it appears PSAs are as follows: 09/05 1.3, 04/08 2.0 [facility] Surgical History History of tonsillectomy and adenoidectomy History of appendectomy [facility] Tobacco Use Status: Never used Tobacco e-Cigarette/Vaping Use: Never Used Second Hand Smoke Exposure: No service: No Current occupational status: retired Current occupational exposures/hazards: No Cognitive needs: No Hearing needs: No Vision needs: No Review of Systems Const All systems reviewed & are unremarkable except as noted in HPI and below Physical Exam Const General: cooperative, healthy appearing, comfortable, no acute distress, well developed, alert and awake Orientation/consciousness: patient oriented x3 Limitations: no limitations HEENT Head: Yes normal to inspection, Yes normocephalic and Yes atraumatic Ears: hearing grossly normal bilaterally Eyes General: appearance normal, both eyes and all related structures Neck Neck: Yes normal visual inspection and Yes trachea midline Chest Chest palpation & inspection: normal inspection of the chest Resp Effort & Inspection: normal respiratory effort and able to speak in complete sentences Cardio Rate: regular rate GI Inspection: Yes normal to inspection General: Yes no CVA tenderness Back/Spine/Pelvis Back: no CVA tenderness Skin General skin exam: no rashes or lesions noted Neuro General: patient oriented x3 Extrem General: Yes normal to inspection Psych Appearance: grossly normal and well kempt Mental Status: mental status grossly normal Speech and movement: Normal speech and movement present and Clear speech present Affect: normal affect Attitude: cooperative Thought process: Normal thought process present Thought content: Normal thought content present Insight: Fair insight present (Psych) Judgement: Fair judgement present (Psych) Results AMB Urinalysis, Automated UA Leukoctes 0 Rafael/uL Last Edit by Brit Go on 08/08/24 11:51 UA Nitrite Last Edit by Brit Go on 08/08/24 11:51 UA Urobilinogen 0.2 mg/dL Last Edit by Brit Go on 08/08/24 11:51 UA Protein 0 mg/dL Last Edit by Brit Go on 08/08/24 11:51 UA pH 6.0 Last Edit by Brit Go on 08/08/24 11:51 UA Blood 0 Fran/uL Last Edit by Brit Go on 08/08/24 11:51 UA Specific [place] 1.010 Last Edit by Brit Go on 08/08/24 11:51 UA Ketone Negative Last Edit by Brit Go on 08/08/24 11:51 UA Bilirubin 0 mg/dL Last Edit by Brit Go on 08/08/24 11:51 UA Glucose 0 mg/dL Last Edit by Brit Go on 08/08/24 11:51 Results Reviewed Results Reviewed: Laboratory Last Values Urine pH (Auto) 6.0 08/08/24 11:50 Specific [place] (Auto) 1.010 08/08/24 11:50 Urine Protein (Auto) 0 mg/dL 08/08/24 11:50 Glucose (UA)(Auto) 0 mg/dL 08/08/24 11:50 Urine Ketones (Auto) Negative 08/08/24 11:50 Urine Blood (Auto) 0 Fran/uL 08/08/24 11:50 Urine Bilirubin (Auto) 0 mg/dL 08/08/24 11:50 Urine Urobilinogen (Auto) 0.2 mg/dL 08/08/24 11:50 Leukocyte Esterase (Auto) 0 Rafael/uL 08/08/24 11:50 Ordering Physician: Susan Doyle Date of Service: 07/25/24 Procedure(s): US retroperitoneal comp Accession Number(s): [id number] cc: Lazaro Fields MD; Susan Doyle~ EXAMINATION: US RETROPERITONEAL COMPLETE (RENAL) CLINICAL INFORMATION: Frequency of micturition. COMPARISON: None available. TECHNIQUE: Real-time imaging of the kidneys and bladder. FINDINGS: RIGHT KIDNEY: 13.7 x 4.2 x 5.4 cm (SAG x AP x TRV). The kidney is normal in size, contour, and echogenicity. Renal cortical thickness is normal. No calculi or focal parenchymal lesions. Renal pelvis is dilated without caliectasis. No gross hydronephrosis. LEFT KIDNEY: 12.2 x 7.1 x 5.8 cm (SAG x AP x TRV). The kidney is normal in size, contour, and echogenicity. Renal cortical thickness is normal. No renal calculi or hydronephrosis. Two cortical echogenic foci are seen measuring 4 mm in size each, one in the mid kidney and one at the lower pole which has appearances consistent with benign tiny angiomyolipomas. BLADDER: Partially distended. Bilateral ureteral jets are demonstrated. Prevoid bladder volume is 189 mL. Postvoid bladder volume is 12 mL. ADDITIONAL FINDINGS: Mild BPH at 39 mL. US/US retroperitoneal comp IMPRESSION: 1. Mild BPH with 39 mL postvoid residual. 2. Two tiny echogenic foci in the left kidney consistent with benign angiomyolipomas. A follow-up ultrasound is recommended in one year's time to document the stability of these findings. 3. Mild dilatation of the right renal pelvis without gross hydronephrosis. 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 PVR 25 mL. Recent retroperitoneal ultrasound results reviewed with the patient today; as noted above. Patient reports significant improvement in urinary symptoms he had been experiencing with Flomax; will continue; refill provided. Discussed possible near future in office cystoscopy if symptoms arise and or wor sen. Discussed potential for finasteride in the setting of enlarged prostate noted on ultrasound. Patient currently denies any bothersome urinary issues or concerns. He reports be happy with his current voiding parameters. Follow-up in 1 year with imaging and lab to be completed prior; or sooner with any issues, concerns, and or questions. Orders: Orders Prostate Specific Antigen 1 Year N40.0 - Benign prostatic hyperplasia without lower urinary tract symptoms AMB Urinalysis Automated Today Z13.9 - Encounter for screening, unspecified US renal BI 2 Months D17.9 - Benign lipomatous neoplasm, unspecified, N40.0 - Benign prostatic hyperplasia without lower urinary tract symptoms, R35.0 - Frequency of micturition, R35.1 - Nocturia, R39.12 - Poor urinary stream Medications: Refilled tamsulosin This is an increase in dose 0.8 mg (2 x 0.4 mg) PO DAILY 180 caps 4RF 90 days Patient Instructions: The patient had an opportunity to ask questions regarding the treatment plan. All questions were answered. Physical exam, labs, and imaging were discussed and reviewed in detail. As well as risks, benefits, and discussion of treatment choices. No major barriers to understanding were identified. The patient expressed understanding and agreement with the above treatment plan. The patient was made aware they should contact our office by phone for worsening of their current condition, the appearance of new symptoms, or with any questions or concerns. Compliance is encouraged with any medications and follow up testing that is ordered. It is a privilege to be allowed the opportunity to participate in? your urological care.? Again, if you have any questions or ata rns If you have any questions or concerns please do not hesitate to contact me. The office is [phone]. This note is constructed using voice recognition software. While every effort has been made to ensure accuracy almond paste molder errors may have been included. Yours sincerely, JERMAINE Barone Coding Level of Care Code Est Pt Level 3 (11110) Complex EM visit Add On G2211 Diagnoses Urinary frequency R35.0 Nocturia R35.1 Weak urinary stream R39.12 Angiolipoma D17.9
== END 2024-08-08 12:04 | disposition home or self-care (01) ==
PROVIDERS: PCP Family Medicine; Visit Provider Nurse Practitioner Family
DX: R35.0 Frequency of micturition (principal); R35.1 Nocturia; R39.12 Poor urinary stream; D17.9 Benign lipomatous neoplasm, unspecified; Z13.9 Encounter for screening, unspecified
CPT/HCPCS: 99213; G2211

== ENCOUNTER → 2024-08-08 11:24 | Outpatient (BNVA) | payer MEDICARE, OTHER, SELFPAY | PROVIDERS: PCP Family Medicine; Visit Provider Nurse Practitioner Family | DX: N40.1 Benign prostatic hyperplasia with lower urinary tract symptoms (principal); R35.0 Frequency of micturition; R35.1 Nocturia; R39.12 Poor urinary stream; D17.9 Benign lipomatous neoplasm, unspecified | CPT/HCPCS: 81003; 99212 ==

== ENCOUNTER 2024-09-22 07:25 | Outpatient (REF) | payer MEDICARE, OTHER, SELFPAY ==
[2024-09-22 07:40] LABS: MANUAL DIFF FLAG NO
[2024-09-22 07:57] LABS: Basophils Percent Auto 0.7 % (0-2); Eosinophils Absolute Auto 0.2 X10*3/uL (0.0-0.4); Eosinophils Percent Auto 3.2 % (0-4); Hematocrit 38.7 % (42.0-52.0); Imm Gran Abs Auto 0.01 X10*3/uL (0.00-0.03); Imm Gran Pct Auto 0.2 % (0.0-0.4); Immature Retic Fraction 7.9 % (2.3-13.4); Lymphocytes Absolute Auto 2.3 X10*3/uL (1.2-4.9); Lymphocytes Percent Auto 40.5 % (20-40); Mean Corpuscular HGB Conc 33.6 g/dl (31.0-36.0); Mean Corpuscular Hemoglobin 30.7 pg (27.0-33.0); Mean Corpuscular Volume 91.3 fL (80.0-98.0); Mean Platelet Volume 10.1 fL (9.4-12.4); Monocytes Absolute Auto 0.5 X10*3/uL (0.1-1.2); Monocytes Percent Auto 9.7 % (2-11); Neutrophils Absolute Auto 2.6 x10*3/uL (2.0-8.3); Neutrophils Percent Auto 45.7 % (45-73); Platelet Count 222 X10*3/uL (160-400); Red Blood Count 4.24 X10*6/uL (4.60-5.80); Red Cell Distribution Width 13.2 % (11.0-16.0); Retic HGB Equivalent 33.5 pg (30.0-35.0); Reticulocyte Percent 1.3 % (0.5-1.8); Reticulocytes Absolute 0.055 X10*6/uL (0.026-0.095); White Blood Count 5.6 X10*3/uL (4.8-10.8)
[2024-09-22 08:01] LABS: Estimated Average Glucose 108 mg/dL; Hemoglobin A1C 125.5181 umol/L; Hemoglobin A1c % 5.4 % (<6.0); Total Hemoglobin (HGBA1C) 3513.8896 umol/L
[2024-09-22 08:28] LABS: Alanine Aminotransferase 26 U/L (0-40); Albumin Level 3.9 g/dL (3.5-5.0); Alkaline Phosphatase 48 U/L (39-117); Anion Gap 10 (12-20); Aspartate Amino Transferase 23 U/L (5-37); Bilirubin Total 0.4 mg/dL (0.0-1.0); Blood Urea Nitrogen 20 mg/dL (9-16); Calcium 9.4 mg/dL (8.4-10.2); Carbon Dioxide 28 mmol/L (22-29); Chloride 107 mmol/L (96-108); Estimated Glomerular Filt Rate > 60; Glucose Fasting 95 mg/dL (60-99); Iron 95 mcg/dL (45-160); Percent Iron Saturation 34 % (15-50); Potassium 4.2 mmol/L (3.3-5.1); Sodium 141 mmol/L (135-145); Total Iron Binding Capacity 283 mcg/dL (228-428); Total Protein 6.6 g/dL (6.5-8.0); Unsaturated Iron Binding 188 ug/dL
[2024-09-22 08:44] LABS: Free T4 (Free Thyroxine) 0.85 ng/dL (0.71-1.85)
[2024-09-22 08:52] LABS: Folate 8.5 ng/mL (> or = 4.0); Vitamin B12 509 pg/mL (200-900)
[2024-09-23 07:54] LABS: Triiodothyronine T3 Total 85 ng/dL (76-181)
== END 2024-09-22 07:26 | disposition home or self-care (01) ==
LOC: HO.LAB 07:25
PROVIDERS: PCP Family Medicine; Visit Provider Family Medicine
DX: Z00.00 Encounter for general adult medical examination without abnormal findings (principal); D64.9 Anemia, unspecified; E03.9 Hypothyroidism, unspecified; R79.89 Other specified abnormal findings of blood chemistry; E53.8 Deficiency of other specified B group vitamins; R73.01 Impaired fasting glucose; R73.03 Prediabetes
CPT/HCPCS: 36415; 80053; 82607; 82746; 83036; 83540; 84439; 84443; 84480; 85025; 85045

== ENCOUNTER 2024-09-29 08:46 | Outpatient (AMB) | payer MEDICARE, OTHER, SELFPAY ==
--- NOTE | 2024-09-29 08:51 | A.OFFPC_ITS ---
Vital Signs 09/29/24 08:54 Height 6 ft 1 in Weight 181 lb 8 oz BMI 23.9 BP 110/59 L Blood Pressure Location Rt brachial Position Sitting Respiration 14 Pulse 59 Pulse Source Pulse Oximeter Temp 97.9 F Temp Source Temporal Artery Scan Pulse Oximetry (%) 99 Oxygen Delivery Method Room Air Intake Visit Reasons: f/u mild anemia, pre-diabetes, labs Intake Note: f/u for labs and pre-diabetes Allergies cat dander [CATS] Allergy (Unknown, Verified 09/29/24 08:53) RED EYES,DIFF BREATHING Medication List - Last Reconciled 09/29/24 by Lazaro Fields MD ascorbic acid (vitamin C) 1 g PO Q6H cholecalciferol (vitamin D3) 25 mcg PO DAILY pz-qwq-EJ-vit T-dcsast-efhqcjs 200 mcg-15 mcg- 5 mg-1 mg (PreserVision AREDS 2 Plus Multivit) caps PO tamsulosin 0.8 mg (2 x 0.4 mg) PO DAILY 90 days Tobacco use date assessed: 04/12/24 Dental Screening Dental Screen Date: 03/15/24 HPI f/u mild anemia, pre-diabetes, labs HPI Details 69 y/o male presents to f/u mild anemia, pre-diabetes, labs. Labs drawn 09/22/24. Reviewed labs with pt. Ongoing mild anemia, mildly worsened. Fasting blood sugar 95. A1c 5.4%. Denies any bleeding. Has not heard from GI yet. Follows up with urology and notes tamsulosin has been helping. HPI Comments History of Present Illness Details Documentation assistance for Lazaro Fields MD, was provided by Jose Oreilly, Certified Lactation Educator on 09/29/2024 at 9:12 AM EST. Gates, Dr. Fields, have read, observed, and verified documentation. [facility], LATER [facility] Surgical History History of tonsillectomy and adenoidectomy History of appendectomy Social History Housing: Condominium Patient Tobacco Use Status: Never used Tobacco e-Cigarette/Vaping Use: Never Used Second Hand Smoke Exposure: No service: No Current occupational status: retired Current occupational exposures/hazards: No Cognitive needs: No Hearing needs: No Vision needs: No Questionnaire PHQ-9 Over the last 2 weeks, how often have you been bothered by any of the following problems? 1. Little interest or pleasure in doing things: not at all 2. Feeling down, depressed, or hopeless: not at all 3. Trouble falling or staying asleep, or sleeping too much: not at all 4. Feeling tired or having little energy: not at all 5. Poor appetite or overeating: not at all 6. Feeling bad about yourself - or that you are a failure or have let yourself or your family down: not at all 7. Trouble concentrating on things, such as reading the newspaper or watching television: not at all 8. Moving or speaking so slowly that other people could have noticed. Or the opposite - being so fidgety or restless that you have been moving around a lot more than usual: not at all 9. Thoughts that you would be better off or of hurting yourself in some way: not at all Total score: 0 Source: Developed by Drs. Gurpreet Coe, Shahnaz Garcia, Brandon Otto and colleagues, with an educational atnhony from [employer]. Thrive Questionnaire Date Thrive assessed: 09/22/24 I am a: Patient What is your living situation today?: I have a steady place to live Within the past 12 months, did the food you bought not last and you didn't have the money to get more?: Never true Within the past 12 months, did you worry whether your food would run out before you got money to buy more?: Never true Do you have trouble paying for medicines?: No Do you have trouble getting transportation to medical appointments?: No Do you have trouble paying your heating and electricity bill?: No Do you have trouble taking care of your child, family member or friend?: No Do you have trouble with day-to-day activities such as bathing, preparing meals, shopping, managing finances, etc.?: No Are you currently unemployed and looking for a job?: No Are you interested in more education?: I choose not to answer this question Please select the resources that you would like help with: None Currently or been in a relationship where the following occur: No concerns reported THRIVE Score: 0 AUDIT C Alcohol Use Questionnaire (AUDIT-C) 1. How often do you have a drink containing alcohol?: 2-4 times a month 2. How many drinks containing alcohol do you have on a typical day when you are drinking?: 1 or 2 3. How often do you have six or more drinks on one occasion?: Never Total Score: 2 TRACEE-7 AMB Questionnaire TRACEE-7 Date TRACEE - 7 assessed: 03/15/24 Feeling nervous, anxious, or on edge: 0 = Not at all Not being able to stop or control worryin = Not at all Worrying too much about different things: 0 = Not at all Trouble relaxin = Not at all Being so restless that it is hard to sit still: 0 = Not at all Becoming easily annoyed or irritable: 0 = Not at all Feeling afraid as if something awful might happen: 0 = Not at all Total TRACEE-7 score (0-4 normal; 5-9 mild; 10-14 moderate; 15-21 severe): 0 Source: Developed by Drs. Gurpreet Coe, Shahnaz Garcia, Brandon Otto and colleagues, with an educational anthony from [employer]. Review of Systems Const Denies chills, Denies fatigue, Denies fever(s), Denies headache(s) and Denies weakness ENT Denies dizziness and Denies headache(s) Card Denies dyspnea Resp Denies cough, Denies dyspnea, Denies wheezing and Denies other (shortness of breath) Musc Denies numbness and Denies tingling Neuro Denies dizziness, Denies headache(s), Denies numbness, Denies tingling and Denies weakness Psych Denies anxiety and Denies depression Endo Denies fatigue Aller/Immun Denies wheezing Physical exam (Primary Care) Vital Signs: Last Vital Signs Temp 97.9 F 09/29/24 08:54 Pulse 59 09/29/24 08:54 Resp 14 09/29/24 08:54 BP 110/59 L 09/29/24 08:54 Pulse Ox 99 09/29/24 08:54 Oxygen Delivery Method Room Air 09/29/24 08:54 BMI result Body Mass Index 23.9 Tobacco/Smoking Status: Tobacco use Status Tobacco use date assessed 04/12/24 09/29/24 08:51 Patient Tobacco Use Status Never used Tobacco 09/29/24 08:51 e-Cigarette/Vaping Use Never Used 09/29/24 08:51 PHQ-9: PHQ-9 Score PHQ-9: Total score 0 09/29/24 09:08 Thrive Assessment: Date of Thrive Assessment Date Thrive assessed 09/22/24 09/29/24 08:51 Currently or been in a relationship where the following occur: No concerns reported Const General: well developed; No acute distress Nutritional Appearance: well nourished Orientation/consciousness: patient oriented x3 HENMT Head: Yes normocephalic and Yes atraumatic Eyes General: appearance normal, both eyes and all related structures Pupils: Equal, round and reactive pupils present EOM: EOMs intact bilaterally Resp Effort & Inspection: normal respiratory effort Neuro General: patient oriented x3 and gait normal Cranial nerves: Yes Equal, round and reactive pupils present Psych Affect: normal affect Coding Level of Care Code Est Pt Level 3 (79696) Diagnoses Pre-diabetes R73.03 Mild anemia D64.9 Screening for colon cancer Z12.11 Enlarged prostate N40.0 Assessment & Plan Assessment & Plan (1) Pre-diabetes: Code(s): R73.03 - Prediabetes Category: Medical Plan: A1c?5.4%. ?Still?in?pre?diabetes?range. Continue?diet?low?in?sugars?and?starches.??Continue?weight?control?and?exercise Will?continue?to?monitor?periodically (2) Mild anemia: Code(s): D64.9 - Anemia, unspecified Category: Medical Plan: Mild?persistent?normocytic?anemia?with?normal?reticulocyte?count?and?normal?iron ?and?B12?studies Patient?denies?any?bl eeding.??No?elevated?bilirubin?and?thyroid?studies?are?normal Patient?requests?referral?to?Hematology-Oncology Referred (3) Screening for colon cancer: Code(s): Z12.11 - Encounter for screening for malignant neoplasm of colon Category: Medical Plan: Patient?was?referred?to?gastroenterology?but?has?not?heard?from?them. I?have?made?a?new?referral?and?will?ask?the?office?to?look?into?the?status (4) Enlarged prostate: Code(s): N40.0 - Benign prostatic hyperplasia without lower urinary tract symptoms Category: Medical Plan: Tamsulosin?is?helping.??He?can?follow-up?with?urology?as?needed Orders: Referrals Hematology & Oncology Referral D64.9 - Anemia, unspecified Gastroenterology Referral Z12.11 - Encounter for screening for malignant neoplasm of colon
[2024-09-29 08:54] VITALS: BP 110/59; PULSE 59; RESP 14; TEMP 36.6; O2SAT 99; BMI 23.9
== END 2024-09-29 09:39 | disposition home or self-care (01) ==
PROVIDERS: PCP Family Medicine; Visit Provider Family Medicine
DX: R73.03 Prediabetes (principal); D64.9 Anemia, unspecified; Z12.11 Encounter for screening for malignant neoplasm of colon; N40.0 Benign prostatic hyperplasia without lower urinary tract symptoms

== ENCOUNTER → 2024-09-29 08:46 | Outpatient (BNVA) | payer MEDICARE, OTHER, SELFPAY | PROVIDERS: PCP Family Medicine; Visit Provider Family Medicine | DX: R73.03 Prediabetes (principal); D64.9 Anemia, unspecified; N40.0 Benign prostatic hyperplasia without lower urinary tract symptoms | CPT/HCPCS: 96127; 99212 ==

== ENCOUNTER → 2024-12-06 08:24 | Outpatient (BNV) | payer MEDICARE, OTHER, SELFPAY | PROVIDERS: PCP Family Medicine; Referring Provider Family Medicine; Visit Provider Internal Medicine Medical Oncology | DX: D64.9 Anemia, unspecified (principal) | CPT/HCPCS: 99204 ==

== ENCOUNTER 2025-01-31 08:23 | Outpatient (REF) | payer MEDICARE, OTHER, SELFPAY | END 2025-01-31 08:24 | disposition home or self-care (01) | LOC: HO.LAB 08:23 | PROVIDERS: PCP Family Medicine; Visit Provider Family Medicine | DX: R73.03 Prediabetes (principal); D64.9 Anemia, unspecified; M65.30 Trigger finger, unspecified finger | CPT/HCPCS: 83036; 99212 ==

== ENCOUNTER 2025-01-31 08:23 | Outpatient (AMB) | payer MEDICARE, OTHER, SELFPAY ==
--- NOTE | 2025-01-31 08:42 | A.OFFPC_ITS ---
Vital Signs 01/31/25 08:44 Height 6 ft 1 in Weight 182 lb 6 oz BMI 24.1 BP 110/60 Blood Pressure Location Lt brachial Position Sitting Respiration 12 Pulse 49 L Pulse Source Pulse Oximeter Temp 97.4 F Temp Source Oral Pulse Oximetry (%) 97 Oxygen Delivery Method Room Air Intake Visit Reasons: f/u mild anemia, pre-diabetes Intake Note: patient is scheduled for lab review and pre-dm follow up Trust Officer Required: No Allergies cat dander [CATS] Allergy (Unknown, Verified 01/31/25 08:43) RED EYES,DIFF BREATHING Medication List - Last Reconciled 01/31/25 by Lazaro Fields MD ascorbic acid (vitamin C) 1 g PO Q6H cholecalciferol (vitamin D3) 25 mcg PO DAILY pw-kld-TZ-vit U-cjwlki-bfojrwc 200 mcg-15 mcg- 5 mg-1 mg (PreserVision AREDS 2 Plus Multivit) 200 caps PO DAILY tamsulosin 0.8 mg (2 x 0.4 mg) PO DAILY 90 days Tobacco use date assessed: 04/12/24 Dental Screening Dental Screen Date: 03/15/24 HPI f/u mild anemia, pre-diabetes HPI Details To?follow-up?pre?diabetes?and?mild?anemia. A1c?has?climbed?a?bit?more?again?to?5.6%. He?is not?eating?any?junk?food?but?does?increases?carbs?before?he?runs Exercising?regularly?and?running. Maintaining?weight Now?followed?by?Hematology-Oncology.??Has?follow-up?in?3?months Hemoglobin?level?remains?steady?around?13.0 Heme-Onc?continues?to?monitor? Patient?notes?right?5th?finger?trigger?finger Symptoms?are?mild. He?notices?it?most?in?the?morning?when?he?wakes?up?and?it?loosens?up?throughout? his?day He?has?tried?using?a?loose?bandage?at?night. [facility] Medical History (Updated 01/31/25 @ 09:16 by Lazaro Fields MD) Atypical mole of neck Surgical History History of tonsillectomy and adenoidectomy History of appendectomy Social History Household Members: Spouse Housing: Condominium Patient Tobacco Use Status: Never used Tobacco e-Cigarette/Vaping Use: Never Used Second Hand Smoke Exposure: No Current occupational status: retired Current occupational exposures/hazards: No Cognitive needs: No Hearing needs: No Vision needs: No Questionnaire PHQ-9 Over the last 2 weeks, how often have you been bothered by any of the following problems? 1. Little interest or pleasure in doing things: not at all 2. Feeling down, depressed, or hopeless: not at all 3. Trouble falling or staying asleep, or sleeping too much: not at all 4. Feeling tired or having little energy: not at all 5. Poor appetite or overeating: not at all 6. Feeling bad about yourself - or that you are a failure or have let yourself or your family down: not at all 7. Trouble concentrating on things, such as reading the newspaper or watching television: not at all 8. Moving or speaking so slowly that other people could have noticed. Or the opposite - being so fidgety or restless that you have been moving around a lot more than usual: not at all 9. Thoughts that you would be better off or of hurting yourself in some way: not at all Total score: 0 Source: Developed by Drs. Gurpreet Coe, Shahnaz Garcia, Brandon Otto and colleagues, with an educational anthony from [employer]. Thrive Questionnaire Date Thrive assessed: 01/24/25 I am a: Patient What is your living situation today?: I have a steady place to live Within the past 12 months, did the food you bought not last and you didn't have the money to get more?: Never true Within the past 12 months, did you worry whether your food would run out before you got money to buy more?: Never true Do you have trouble paying for medicines?: No Do you have trouble getting transportation to medical appointments?: No Do you have trouble paying your heating and electricity bill?: No Do you have trouble taking care of your child, family member or friend?: No Do you have trouble with day-to-day activities such as bathing, preparing meals, shopping, managing finances, etc.?: No Are you currently unemployed and looking for a job?: No Are you interested in more education?: No Please select the resources that you would like help with: None Currently or been in a relationship where the following occur: No concerns reported THRIVE Score: 0 AUDIT C Alcohol Use Questionnaire (AUDIT-C) 1. How often do you have a drink containing alcohol?: Monthly or less 2. How many drinks containing alcohol do you have on a typical day when you are drinking?: 1 or 2 3. How often do you have six or more drinks on one occasion?: Never Total Score: 1 TRACEE-7 AMB Questionnaire TRACEE-7 Date TRACEE - 7 assessed: 03/15/24 Feeling nervous, anxious, or on edge: 0 = Not at all Not being able to stop or control worryin = Not at all Worrying too much about different things: 0 = Not at all Trouble relaxin = Not at all Being so restless that it is hard to sit still: 0 = Not at all Becoming easily annoyed or irritable: 0 = Not at all Feeling afraid as if something awful might happen: 0 = Not at all Total TRACEE-7 score (0-4 normal; 5-9 mild; 10-14 moderate; 15-21 severe): 0 Source: Developed by Drs. Gurpreet Coe, Shahnaz Garcia, Brandon Otto and colleagues, with an educational anthony from [employer]. Review of Systems Const Denies chills, Denies fatigue, Denies fever(s), Denies headache(s) and Denies weakness ENT Denies dizziness and Denies headache(s) Card Denies chest pain, Denies lightheadedness, Denies dyspnea and Denies other (Palpitations) Resp Denies cough, Denies dyspnea, Denies wheezing and Denies other ( shortness of breath) Musc Details: Trigger?finger?of?right?5th?digit Denies numbness and Denies tingling Neuro Denies dizziness, Denies headache(s), Denies numbness, Denies tingling, Denies paresthesias and Denies weakness Psych Denies anxiety and Denies depression Endo Denies fatigue Aller/Immun Denies wheezing Physical exam (Primary Care) Vital Signs: Last Vital Signs Temp 97.4 F 01/31/25 08:44 Pulse 49 L 01/31/25 08:44 Resp 12 01/31/25 08:44 BP 110/60 01/31/25 08:44 Pulse Ox 97 01/31/25 08:44 Oxygen Delivery Method Room Air 01/31/25 08:44 BMI result Body Mass Index 24.1 Tobacco/Smoking Status: Tobacco use Status Tobacco use date assessed 04/12/24 01/31/25 08:42 Patient Tobacco Use Status Never used Tobacco 01/31/25 08:42 e-Cigarette/Vaping Use Never Used 01/31/25 08:42 PHQ-9: PHQ-9 Score PHQ-9: Total score 0 01/31/25 08:42 Thrive Assessment: Date of Thrive Assessment Date Thrive assessed 01/24/25 01/31/25 08:42 Currently or been in a relationship where the following occur: No concerns reported Const General: no acute distress and well developed Nutritional Appearance: well nourished Orientation/consciousness: patient oriented x3 HENMT Head: Yes normocephalic and Yes atraumatic Eyes General: appearance normal, both eyes and all related structures Pupils: Equal, round and reactive pupils present EOM: EOMs intact bilaterally Resp Effort & Inspection: normal respiratory effort Auscultation: clear to auscultation bilaterally Cardio Rate: regular rate Rhythm: regular rhythm Heart sounds: S1 normal heart sound present, S2 normal heart sound present, no gallops, no murmurs and no rubs Neuro General: patient oriented x3 and gait normal Cranial nerves: Yes Equal, round and reactive pupils present Extrem Other: Right?5th?finger?flexion?and?extension?appear?normal?at?this?time Psych Affect: normal affect Coding Level of Care Code Est Pt Level 4 (00130) Diagnoses Pre-diabetes R73.03 Normochromic normocytic anemia D64.9 Trigger finger of right hand M65.30 Assessment & Plan Assessment & Plan (1) Pre-diabetes: Code(s): R73.03 - Prediabetes Category: Medical Plan: A1c?climbed?again?and?now?at?5.6% Encouraged?diet?low?in?sugars?and?starches Continue?exercise?and?weight?control Will?monitor (2) Normochromic normocytic anemia: Code(s): D64.9 - Anemia, unspecified Category: Medical Plan: Followed?by?Hematology-Oncology They?have?a?follow-up?appointment?in?3?months. Currently?appears?stable They?will?consider?more?aggressive?evaluation?such?as?bone?marrow?biopsy?if?hemo globin?lower?than?10 (3) Trigger finger of right hand: Code(s): M65.30 - Trigger finger, unspecified finger Category: Medical Plan: Mild?trigger?finger?of?R?5th?digit This?appears?mild He?can?try?splinting?with?a?loose?bandage?at?night Warm?of?digit?in?use?gentle?stretching NSAIDs?or?other?anti-inflammatories He?will?let?me?know?if?worsening?or?not?improving. Orders: Orders Hemoglobin A1c Today R73.01 - Impaired fasting glucose, R73.03 - Prediabetes Comprehensive [place]. Panel Fast Today R73.03 - Prediabetes, Z00.00 - Encounter for general adult medical examination without abnormal findings Complete Blood Count Auto Diff Today D64.9 - Anemia, unspecified, Z00.00 - Encounter for general adult medical examination without abnormal findings
[2025-01-31 08:44] VITALS: BP 110/60; PULSE 49; RESP 12; TEMP 36.3; O2SAT 97; BMI 24.1
== END 2025-01-31 09:11 | disposition home or self-care (01) ==
LOC: HO.HMCFM 08:24
PROVIDERS: PCP Family Medicine; Visit Provider Family Medicine
DX: R73.03 Prediabetes (principal); D64.9 Anemia, unspecified; M65.30 Trigger finger, unspecified finger

== ENCOUNTER 2025-03-07 09:58 | Outpatient (AMB) | payer MEDICARE, OTHER, SELFPAY ==
--- NOTE | 2025-03-07 10:06 | MHC.OFFVIS ---
Vital Signs 03/07/25 10:13 Height 6 ft 1 in Weight 178 lb 9.191 oz BMI 23.6 BP 115/58 L Blood Pressure Location Lt brachial Position Sitting Intake Visit Reasons: [place] screening Intake Note: New patient in office today for colonoscopy screening. CC: Allergies cat dander [CATS] Allergy (Unknown, Verified 03/07/25 10:22) RED EYES,DIFF BREATHING No Known Drug Allergies Allergy (Unknown, Verified 03/07/25 10:22) none HPI HPI [place] screening: Details: 69-year-old male here for preprocedural meeting to discuss a screening colonoscopy. He is referred by Lazaro Fields. PMX Pre diabetes Anemia BPH Dizziness * SURGICAL HISTORY Tonsillectomy and adenoidectomy Appendectomy Rt knee meniscus repair * ALLERGIES: NKDA * [facility] LABS: Laboratory Tests 01/09/25 09:49 WBC 6.3 RBC 4.25 L Hgb 12.9 L Hct 38.3 L MCV 90.1 MCH 30.4 Plt Count 210 Estimated GFR > 60 Total Bilirubin 0.5 AST 26 ALT 25 Alkaline Phosphatase 51 TODAY'S VISIT He had a prior colonoscopy in [address] Galvez. He has anemia and is seeing Dr. Blood, will add EGD as well. He is asx this was discovered on PCP blood work. No prior problems with anesthesia and sedation. He denies any cardiac or respiratory problems. NO ID problems. His sister had colon polyps, 2 large TA's with our service ([employer]). REPLACED BY [facility] Medical History Adult general medical exam Screening for prostate cancer Screening for colon cancer Immunization counseling Atypical mole of neck Surgical History H/O colonoscopy History of tonsillectomy and adenoidectomy History of appendectomy Family History Mother Breast cancer Social History Household Members: Spouse Housing: [facility] Patient Tobacco Use Status: Never used Tobacco e-Cigarette/Vaping Use: Never Used Second Hand Smoke Exposure: No Current occupational status: retired Current occupational exposures/hazards: No Cognitive needs: No Hearing needs: No Vision needs: No Review of Systems Const Denies fatigue, Denies fever(s), Denies night sweats, Denies poor appetite and Denies weight loss Eyes Details: glasses Reports requires corrective lenses ENT Reports Normal hearing present, Denies dental pain, Denies dysphagia, Denies hearing loss, Denies mouth pain, Denies odynophagia, Denies throat swelling, Denies tongue swelling and Reports other (Dentition adequate) Card Reports no additional complaints Resp Reports no additional complaints GI Details: Denies abdominal pain, Denies melena, Denies bloating, Denies hematochezia, Denies constipation, Denies GI cramping, Denies dysphagia, Denies excessive flatus, Denies early satiety, Denies heartburn, Denies diarrhea, Denies nausea, Denies odynophagia, Denies vomiting and Denies hematemesis Skin/Breast Denies pruritus, Denies lesions, Denies rash and Denies jaundice Neuro Reports Normal hearing present and Denies Abnormal speech present Endo Denies fatigue Aller/Immun Denies throat swelling and Denies tongue swelling Physical Exam Vital Signs: Last Vital Signs BP 115/58 L 03/07/25 10:13 BMI result Body Mass Index 23.6 Const General: cooperative, no acute distress, well developed and well groomed Nutritional Appearance: average body habitus and well nourished Orientation/consciousness: oriented to person, oriented to place and oriented to time Limitations: No language barrier HEENT Head: Yes normocephalic and Yes atraumatic Eyes General: appearance normal, both eyes and all related structures Pupils: Equal, round and reactive pupils present Neck Neck: Yes normal visual inspection and Yes no lymphadenopathy Thyroid: Thyroid normal Resp Effort & Inspection: normal respiratory effort and able to speak in complete sentences Auscultation: clear to auscultation bilaterally Cardio Rate: regular rate Rhythm: regular rhythm Heart sounds: Normal, physiologic split S2 sound present Peripheral pulses: radial pulses present and posterior tibial pulses present GI Inspection: No distended, No Abdominal panniculus present and Yes scar Palpation (GI): Soft to palpation, nontender, no guarding, not rigid and No hepatosplenomegaly present Percussion: Yes normal to percussion Auscultation: normal bowel sounds Rectal Exam - Male: Yes deferred Abdomen image: 1. surgical scar Skin General skin exam: no rashes or lesions noted, turgor normal, skin not dry, no jaundice, No spider nevi and no striae Rashes: no rashes Nails: normal Neuro General: oriented to person, oriented to place and oriented to time Cranial nerves: Yes Equal, round and reactive pupils present and Yes Normal hearing present Speech: No Abnormal speech present Extrem General: Yes normal to inspection, No clubbing, No cyanosis and No edema Psych Appearance: grossly normal and well kempt Mental Status: mental status grossly normal Speech and movement: Normal speech and movement present Affect: normal affect Attitude: cooperative Thought process: Normal thought process present and not confabulating Thought content: Normal thought content present Insight: Good insight present (Psych) Judgement: Good judgement present (Psych) Assessment & Plan Assessment & Plan (1) Pre-op examination: Code(s): Z01.818 - Encounter for other preprocedural examination Category: Medical (2) Family history of polyps in the colon: Comment: Sister Code(s): Z83.719 - Family history of colon polyps, unspecified Category: Medical Plan He had a prior colonoscopy in [address] Galvez. He has anemia and is seeing Dr. Blood, will add EGD as well. He is asx this was discovered on PCP blood work. No prior problems with anesthesia and sedation. He denies any cardiac or respiratory problems. NO ID problems. His sister had colon polyps, 2 large TA's with our service ([employer]). Orders: Orders Colonoscopy - GI Use Only Today Z01.818 - Encounter for other preprocedural examination Medications: New sodium,potassium,mag sulfates 17.5-3.13-1.6 gram (Suprep Bowel Prep Kit) 480 mL orally; FOR COLONOSCOPY PREP 354 mL 0RF Coding Level of Care Code New Pt Level 3 (86946) Diagnoses Pre-op examination Z01.818 Family history of polyps in the colon Z83.719
[2025-03-07 10:13] VITALS: BP 115/58; BMI 23.6
== END 2025-03-07 10:49 | disposition home or self-care (01) ==
LOC: HO.HGI 09:59
PROVIDERS: PCP Family Medicine; Visit Provider Nurse Practitioner
DX: Z01.818 Encounter for other preprocedural examination (principal); Z12.11 Encounter for screening for malignant neoplasm of colon; Z83.719 Family history of colon polyps, unspecified
CPT/HCPCS: 99024

== ENCOUNTER → 2025-03-07 09:58 | Outpatient (BNVA) | payer MEDICARE, OTHER, SELFPAY | PROVIDERS: PCP Family Medicine; Visit Provider Nurse Practitioner | DX: Z01.818 Encounter for other preprocedural examination (principal); Z83.719 Family history of colon polyps, unspecified | CPT/HCPCS: 99212 ==

== ENCOUNTER 2025-04-25 09:21 | Outpatient (REF) | payer MEDICARE, OTHER, SELFPAY ==
--- NOTE | ~2025-04-25 | US_ITS ---
EXAMINATION: US KIDNEY BILATERAL HISTORY: D17.9 - Benign lipomatous neoplasm, unspecified TECHNIQUE: Real-time grayscale ultrasound imaging of the kidneys was performed and images were reviewed. COMPARISON: Comparison is made with the prior examination dated 07/25/2024. FINDINGS: Right kidney: The right kidney measures 13.5 x 3.4 x 4.9 cm. Renal parenchymal echotexture and thickness are normal. There are no masses. There is no hydronephrosis or renal calculi. Left Kidney: The left kidney measures 12.6 x 6.3 x 4.9 cm. Renal parenchymal thickness is normal. Again seen are echogenic foci in the interpolar region measuring 5 x 5 x 7 mm and at the lower pole measuring 4 x 5 x 3 mm. There is no hydronephrosis or renal calculi. 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 Continued follow-up is recommended. Electronically signed by: Gurpreet Hudson MD 04/25/2025 11:00 AM EDT
== END 2025-04-25 09:22 | disposition home or self-care (01) ==
LOC: HO.US 09:21
PROVIDERS: PCP Family Medicine; Visit Provider Nurse Practitioner Family
DX: D17.9 Benign lipomatous neoplasm, unspecified (principal); N40.0 Benign prostatic hyperplasia without lower urinary tract symptoms; R35.0 Frequency of micturition; R39.12 Poor urinary stream; R35.1 Nocturia
CPT/HCPCS: 76775

== ENCOUNTER → 2025-04-25 09:22 | Outpatient (BNV) | payer MEDICARE, OTHER, SELFPAY | PROVIDERS: PCP Family Medicine; Visit Provider Radiology Diagnostic Radiology | DX: R93.422 Abnormal radiologic findings on diagnostic imaging of left kidney (principal) | CPT/HCPCS: 76775 ==

== ENCOUNTER 2025-07-12 06:22 | Outpatient (REF) | payer MEDICARE, OTHER, SELFPAY ==
[2025-07-12 06:53] LABS: MANUAL DIFF FLAG NO
[2025-07-12 07:41] LABS: Hematocrit 39.3 % (42.0-52.0); Hemoglobin 13.0 g/dl (14.0-18.0); Imm Gran Abs Auto 0.01 X10*3/uL (0.00-0.03); Imm Gran Pct Auto 0.2 % (0.0-0.4); Lymphocytes Absolute Auto 2.7 X10*3/uL (1.2-4.9); Mean Corpuscular HGB Conc 33.1 g/dl (31.0-36.0); Mean Corpuscular Hemoglobin 30.2 pg (27.0-33.0); Mean Corpuscular Volume 91.2 fL (80.0-98.0); NRBC Abs Auto 0.000 X10*3/uL (0.0-0.012); NRBC Pct Auto 0.0 /100WBC (0.0-0.2); Platelet Count 215 X10*3/uL (160-400); Red Blood Count 4.31 X10*6/uL (4.60-5.80); White Blood Count 6.2 X10*3/uL (4.8-10.8)
[2025-07-12 07:48] LABS: Hemoglobin A1C 124.0497 umol/L; Total Hemoglobin (HGBA1C) 3402.3755 umol/L
[2025-07-12 08:21] LABS: Alanine Aminotransferase 21 U/L (0-40); Albumin Level 4.1 g/dL (3.5-5.0); Alkaline Phosphatase 41 U/L (39-117); Anion Gap 9 (12-20); Aspartate Amino Transferase 22 U/L (5-37); Blood Urea Nitrogen 24 mg/dL (9-16); Calcium 9.0 mg/dL (8.4-10.2); Carbon Dioxide 29 mmol/L (22-29); Chloride 107 mmol/L (96-108); Estimated Glomerular Filt Rate > 60; Potassium 4.0 mmol/L (3.3-5.1); Sodium 141 mmol/L (135-145); Total Protein 6.3 g/dL (6.5-8.0)
== END 2025-07-12 06:23 | disposition home or self-care (01) ==
LOC: HO.LAB 06:22
PROVIDERS: PCP Family Medicine; Visit Provider Family Medicine
DX: Z00.00 Encounter for general adult medical examination without abnormal findings (principal); R73.01 Impaired fasting glucose; R73.03 Prediabetes; D64.9 Anemia, unspecified
CPT/HCPCS: 36415; 80053; 83036; 85025

== ENCOUNTER 2025-07-18 08:44 | Outpatient (AMB) | payer MEDICARE, OTHER, SELFPAY ==
--- NOTE | 2025-07-18 08:46 | MHC.PC.OV ---
Vital Signs 07/18/25 08:50 Height 6 ft 1 in Weight 172 lb BMI 22.7 BP 99/66 Blood Pressure Location Lt brachial Position Sitting Respiration 12 Pulse 65 Pulse Source Pulse Oximeter Temp 97.1 F Temp Source Oral Pulse Oximetry (%) 100 Oxygen Delivery Method Room Air Intake Visit Reasons: f/u mild anemia, pre-diabetes Intake Note: Follow up on pre diabetes and anemia Flower Grower Required: No Allergies cat dander (CATS) Allergy (Unknown, Verified 07/18/25 08:47) RED EYES,DIFF BREATHING No Known Drug Allergies Allergy (Unknown, Verified 07/18/25 08:47) none Medication List - Last Reconciled 07/18/25 by Lazaro Fields MD ascorbic acid (vitamin C) 1 g PO DAILY cholecalciferol (vitamin D3) 25 mcg PO DAILY sodium,potassium,mag sulfates 17.5-3.13-1.6 gram (Suprep Bowel Prep Kit) 480 mL orally; FOR COLONOSCOPY PREP tamsulosin 0.8 mg (2 x 0.4 mg) PO DAILY 90 days turmeric root extract 1,000 mg PO DAILY zinc 22 mg PO DAILY Tobacco use date assessed: 07/18/25 Fall risk assessment: No Falls in past year Last assessed Fall Risk: 07/18/25 Dental Screening Dental Screen Date: 07/18/25 Did you have a dental visit in the last 12 months?: Yes Did you have a dental problem in the last 6 months where you did not have access to dental care?: No Was dental information given to patient?: Patient has dentist HPI f/u mild anemia, pre-diabetes HPI Details Patient presents to follow-up pre diabetes and mild anemia History of elevated fasting blood sugar and A1c has been in pre diabetes range in the past. He has been working on a diet low in sugars and starches. He walks and runs as well as does some weight lifting. Weight is well controlled A1c now 5.5% Recent hemoglobin 13.0 He is followed by Hematology-Oncology [facility] Medical History Adult general medical exam Screening for prostate cancer Screening for colon cancer Immunization counseling Atypical mole of neck Surgical History H/O colonoscopy History of tonsillectomy and adenoidectomy History of appendectomy Family History Mother Breast cancer Social History Household Members: Spouse Housing: Condominium Patient Tobacco Use Status: Never used Tobacco e-Cigarette/Vaping Use: Never Used Second Hand Smoke Exposure: No service: No Current occupational status: retired Current occupational exposures/hazards: No Cognitive needs: No Hearing needs: No Vision needs: No Questionnaire PHQ-9 Over the last 2 weeks, how often have you been bothered by any of the following problems? 1. Little interest or pleasure in doing things: not at all 2. Feeling down, depressed, or hopeless: not at all 3. Trouble falling or staying asleep, or sleeping too much: not at all 4. Feeling tired or having little energy: not at all 5. Poor appetite or overeating: not at all 6. Feeling bad about yourself - or that you are a failure or have let yourself or your family down: not at all 7. Trouble concentrating on things, such as reading the newspaper or watching television: not at all 8. Moving or speaking so slowly that other people could have noticed. Or the opposite - being so fidgety or restless that you have been moving around a lot more than usual: not at all 9. Thoughts that you would be better off or of hurting yourself in some way: not at all Total score: 0 Depression Screening Interpretation: Negative Depression Screening Done: Yes 00645 - PHQ-9 Billing: Yes Source: Developed by Drs. Gurpreet Coe, Shahnaz Garcia, Brandon Otto and colleagues, with an educational anthony from [employer]. Thrive Questionnaire Date Thrive assessed: 07/18/25 I am a: Patient What is your living situation today?: I have a steady place to live Within the past 12 months, did the food you bought not last and you didn't have the money to get more?: Never true Within the past 12 months, did you worry whether your food would run out before you got money to buy more?: Never true Do you have trouble paying for medicines?: No Do you have trouble getting transportation to medical appointments?: No Do you have trouble paying your heating and electricity bill?: No Do you have trouble taking care of your child, family member or friend?: No Do you have trouble with day-to-day activities such as bathing, preparing meals, shopping, managing finances, etc.?: No Are you currently unemployed and looking for a job?: No Are you interested in more education?: No Please select the resources that you would like help with: None Currently or been in a relationship where the following occur: No concerns reported THRIVE Score: 0 TRACEE-7 AMB Questionnaire TRACEE-7 Date TRACEE - 7 assessed: 07/18/25 Feeling nervous, anxious, or on edge: 0 = Not at all Not being able to stop or control worryin = Not at all Worrying too much about different things: 0 = Not at all Trouble relaxin = Not at all Being so restless that it is hard to sit still: 0 = Not at all Becoming easily annoyed or irritable: 0 = Not at all Feeling afraid as if something awful might happen: 0 = Not at all Total TRACEE-7 score (0-4 normal; 5-9 mild; 10-14 moderate; 15-21 severe): 0 Source: Developed by Drs. Gurpreet Coe, Shahnaz Garcia, Brandon Otto and colleagues, with an educational anthony from [employer]. TRACEE-7 Assessment Billing TRACEE-7 Assessment Tool: TRACEE-7 Assessment 34458 Review of Systems Const Denies chills, Denies fatigue, Denies fever(s), Denies headache(s) and Denies weakness ENT Denies dizziness and Denies headache(s) Card Denies chest pain, Denies lightheadedness, Denies dyspnea and Denies other (Palpitations) Resp Denies cough, Denies dyspnea, Denies wheezing and Denies other ( shortness of breath) Musc Denies numbness and Denies tingling Neuro Denies dizziness, Denies headache(s), Denies numbness, Denies tingling, Denies paresthesias and Denies weakness Psych Denies anxiety and Denies depression Endo Denies fatigue Aller/Immun Denies wheezing Physical exam (Primary Care) Vital Signs: Last Vital Signs Temp 97.1 F 07/18/25 08:50 Pulse 65 07/18/25 08:50 Resp 12 07/18/25 08:50 BP 99/66 07/18/25 08:50 Pulse Ox 100 07/18/25 08:50 Oxygen Delivery Method Room Air 07/18/25 08:50 BMI result Body Mass Index 22.7 Tobacco/Smoking Status: Tobacco use Status Tobacco use date assessed 07/18/25 07/18/25 08:49 Patient Tobacco Use Status Never used Tobacco 07/18/25 08:49 e-Cigarette/Vaping Use Never Used 07/18/25 08:49 PHQ-9: PHQ-9 Score PHQ-9: Total score 0 07/18/25 08:49 Depression Screening Interpretation: Negative Thrive Assessment: Date of Thrive Assessment Date Thrive assessed 07/18/25 07/18/25 08:49 Currently or been in a relationship where the following occur: No concerns reported Const General: no acute distress and well developed Nutritional Appearance: well nourished Orientation/consciousness: patient oriented x3 HENMT Head: Yes normocephalic and Yes atraumatic Eyes General: appearance normal, both eyes and all related structures Pupils: Equal, round and reactive pupils present EOM: EOMs intact bilaterally Resp Effort & Inspection: normal respiratory effort Auscultation: clear to auscultation bilaterally Cardio Rate: regular rate Rhythm: regular rhythm Heart sounds: S1 normal heart sound present, S2 normal heart sound present, no gallops, no murmurs and no rubs Neuro General: patient oriented x3 and gait normal Cranial nerves: Yes Equal, round and reactive pupils present Psych Affect: normal affect Coding Level of Care Code Est Pt Level 4 (89759) Diagnoses Pre-diabetes R73.03 Mild anemia D64.9 Neoplasm of uncertain behavior of skin D48.5 Additional Codes TRACEE-7 Assessment Billing - TRACEE-7 Assessment Tool: TRACEE-7 Assessment 16465 ([id number]) PHQ-9 - 46712 - PHQ-9 Billing: Yes ([id number]) Assessment & Plan Assessment & Plan (1) Pre-diabetes: Code(s): R73.03 - Prediabetes Category: Medical Plan: A1c 5.5% is in upper limits of normal Continue working at a diet low in sugars and starches Continue weight control and exercise (2) Mild anemia: Code(s): D64.9 - Anemia, unspecified Category: Medical Plan: Ongoing mild anemia. Stable Follow-up with Hematology-Oncology as recommended (3) Neoplasm of uncertain behavior of skin: Code(s): D48.5 - Neoplasm of uncertain behavior of skin Category: Medical Plan: Patient has lesion at right posterior neck Follow-up with dermatology Plan Patient also had appointment with Gastroenterology. He has not heard back regarding appointment for colonoscopy Advised him to call gastroenterology for appointment
[2025-07-18 08:50] VITALS: BP 99/66; PULSE 65; RESP 12; TEMP 36.2; O2SAT 100; BMI 22.7
== END 2025-07-18 09:38 | disposition home or self-care (01) ==
LOC: HO.HMCFM 08:44
PROVIDERS: PCP Family Medicine; Visit Provider Family Medicine
DX: R73.03 Prediabetes (principal); D64.9 Anemia, unspecified; D48.5 Neoplasm of uncertain behavior of skin

== ENCOUNTER → 2025-07-18 08:44 | Outpatient (BNVA) | payer MEDICARE, OTHER, SELFPAY | PROVIDERS: PCP Family Medicine; Visit Provider Family Medicine | DX: R73.03 Prediabetes (principal); D64.9 Anemia, unspecified; D48.5 Neoplasm of uncertain behavior of skin | CPT/HCPCS: 96127; 99212 ==

== ENCOUNTER 2025-08-01 06:38 | Outpatient (REF) | payer MEDICARE, OTHER, SELFPAY ==
[2025-08-01 08:49] LABS: Prostate Specific Antigen 2.27 ng/mL (<0.05-4.0)
== END 2025-08-01 06:39 | disposition home or self-care (01) ==
LOC: HO.LAB 06:38
PROVIDERS: PCP Family Medicine; Visit Provider Nurse Practitioner Family
DX: N40.0 Benign prostatic hyperplasia without lower urinary tract symptoms (principal); Z12.5 Encounter for screening for malignant neoplasm of prostate
CPT/HCPCS: 36415; 84153

== ENCOUNTER 2025-08-07 07:39 | Outpatient (AMB) | payer MEDICARE, OTHER, SELFPAY ==
--- NOTE | 2025-08-07 07:46 | A.OFFVIS_ITS ---
Intake Visit Reasons: 1 yr/ PSA Intake Note: Patient presents for 1 yr follow up Labs done 08/01/2025 : PSA 2.27 Urology Medications: Tamsulosin Blood Thinner: none LAST PVR: 25ml's Video Game Animator Required: No Accompanied by: Self / Same As Patient Allergies cat dander (CATS) Allergy (Unknown, Verified 08/07/25 09:06) RED EYES,DIFF BREATHING No Known Drug Allergies Allergy (Unknown, Verified 08/07/25 09:06) none Medication List - Last Reconciled 08/07/25 by GENIE Barone-DEDRA ascorbic acid (vitamin C) 1 g PO DAILY cholecalciferol (vitamin D3) 25 mcg PO DAILY sodium,potassium,mag sulfates 17.5-3.13-1.6 gram (Suprep Bowel Prep Kit) 480 mL orally; FOR COLONOSCOPY PREP tamsulosin 0.8 mg (2 x 0.4 mg) PO DAILY 90 days turmeric root extract 1,000 mg PO DAILY zinc 22 mg PO DAILY HPI Comments Details: Shilo is a very pleasant 70-year-old male patient of Dr. Fields. 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 In discussion with the patient today he reports to be doing and feeling well. He reports since his last office visit here approximately 1 year ago he does feel his episodes of nocturia are worsening. He describes episodes of nocturia up to 4 times per night. However he is eating and drinking prior to bed. We did discussed lifestyle modifications such as limiting eating and drinking to decrease episodes of nocturia. He also discusses his brother who is undergoing further workup of an elevated PSA at this time. Recent renal imaging results were reviewed with the patient today 05/10 bilateral kidneys with no hydronephrosis. Stable subcentimeter echogenic foci in the left kidney which may represent and angiolipoma. Continued follow-up is recommended per radiology report. He reports compliance with Flomax as prescribed. Previous workup has included a retroperitoneal ultrasound 08/09 noting bilateral kidneys with no hydr onephrosis or renal calculi. Left kidney with 2 cortical echogenic foci seen measuring 4 mm in size, 1 in the middle kidney and 1 in the lower pole which appears consistent with a benign tiny angiolipoma is per radiology report. The bladder is partially distended. Bilateral ureteral jets are demonstrated. Pre void bladder volume is approximately 200 mL. Postvoid bladder volume is approximately 10 mL. Mild BPH at 40 mL. He denies incontinence, hematuria, dysuria, foul smelling urine, changes to urinary stream, flank pain, fever, and or chills. In office urinalysis results reviewed with the patient today. In review of patient's chart it appears PSAs are as follows: 09/05 1.3, 04/08 2.0, 08/10 2.3 All questions were answered. When asked he does report potential signs and symptoms of sleep apnea and we did discussed potential near future sleep studies for further assessment evaluation given patient also reporting episodes of nocturia however will proceed with lifestyle modifications at this time per patient request. He otherwise offers no other issues or concerns at this time. [facility] Medical History Adult general medical exam Screening for prostate cancer Screening for colon cancer Immunization counseling Atypical mole of neck Surgical History H/O colonoscopy History of tonsillectomy and adenoidectomy History of appendectomy Family History Mother Breast cancer Social History Household Members: Spouse [facility] Patient Tobacco Use Status: Never used Tobacco e-Cigarette/Vaping Use: Never Used Second Hand Smoke Exposure: No service: No Current occupational status: retired Current occupational exposures/hazards: No Cognitive needs: No Hearing needs: No Vision needs: No Review of Systems Const All systems reviewed & are unremarkable except as noted in HPI and below Physical Exam Const General: cooperative, healthy appearing, comfortable, no acute distress, well developed, alert and awake Orientation/consciousness: patient oriented x3 Limitations: no limitations HEENT Head: Yes normal to inspection, Yes normocephalic and Yes atraumatic Ears: hearing grossly normal bilaterally Eyes General: appearance normal, both eyes and all related structures Neck Neck: Yes normal visual inspection and Yes trachea midline Chest Chest palpation & inspection: normal inspection of the chest Resp Effort & Inspection: normal respiratory effort and able to speak in complete sentences Cardio Rate: regular rate GI Inspection: Yes normal to inspection General: Yes no CVA tenderness Back/Spine/Pelvis Back: no CVA tenderness Skin General skin exam: no rashes or lesions noted Neuro General: patient oriented x3 Extrem General: Yes normal to inspection Psych Appearance: grossly normal and well kempt Mental Status: mental status grossly normal Speech and movement: Normal speech and movement present and Clear speech present Affect: normal affect Attitude: cooperative Thought process: Normal thought process present Thought content: Normal thought content present Insight: Fair insight present (Psych) Judgement: Fair judgement present (Psych) Results AMB Urinalysis, Automated UA Leukoctes 0 Rafael/uL Last Edit by DWAYNE Bullard on 08/07/25 07:53 UA Nitrite Negative Last Edit by Cadence Winchester CCM on 08/07/25 07:53 UA Urobilinogen 3.5 mg/dL Last Edit by DWAYNE Bullard on 08/07/25 07:5 3 UA Protein 0 mg/dL Last Edit by Cadence Winchester CCM on 08/07/25 07:53 UA pH 6.0 Last Edit by Cadence Winchester CCM on 08/07/25 07:53 UA Blood 0 Fran/uL Last Edit by Cadence Winchester CCM on 08/07/25 07:53 UA Specific Ramer 1.015 Last Edit by Cadence Winchester CCM on 08/07/25 07: 53 UA Ketone Negative Last Edit by DWAYNE Bullard on 08/07/25 07:53 UA Bilirubin 0 mg/dL Last Edit by Cadence Winchester CCM on 08/07/25 07:53 UA Glucose 0 mg/dL Last Edit by Cadence Winchester CCM on 08/07/25 07:53 Results Reviewed Results Reviewed: Laboratory Last Values Urine pH (Auto) 6.0 08/07/25 07:53 Specific Ramer (Auto) 1.015 08/07/25 07:53 Urine Protein (Auto) 0 mg/dL 08/07/25 07:53 Glucose (UA)(Auto) 0 mg/dL 08/07/25 07:53 Urine Ketones (Auto) Negative 08/07/25 07:53 Urine Blood (Auto) 0 Fran/uL 08/07/25 07:53 Urine Nitrite (Auto) Negative 08/07/25 07:53 Urine Bilirubin (Auto) 0 mg/dL 08/07/25 07:53 Urine Urobilinogen (Auto) 3.5 mg/dL 08/07/25 07:53 Leukocyte Esterase (Auto) 0 Rafael/uL 08/07/25 07:53 Date of Service: 04/25/25 Procedure(s): US renal BI FINDINGS: Right kidney: The right kidney measures 13.5 x 3.4 x 4.9 cm. Renal parenchymal echotexture and thickness are normal. There are no masses. There is no hydronephrosis or renal calculi. Left Kidney: The left kidney measures 12.6 x 6.3 x 4.9 cm. Renal parenchymal thickness is normal. Again seen are echogenic foci in the interpolar region measuring 5 x 5 x 7 mm and at the lower pole measuring 4 x 5 x 3 mm. There is no hydronephrosis or renal calculi. 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 Continued follow-up is recommended. 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 Recent PSA results reviewed with the patient today; as noted above. Recent renal imaging results reviewed with the patient today; as noted above. We discussed potential causes of nocturia as well as further treatment options and risks and benefits of these treatment options. Continue Flomax as discussed and prescribed. We discussed lifestyle modifications to assist with nocturia. All questions were answered. Will continue with surveillance monitoring of angiolipoma. Follow-up in 3-6 months with PVR; or sooner with any issues, concerns, and or questions. Orders: Orders AMB Urinalysis Automated Today Z13.9 - Encounter for screening, unspecified Patient Instructions: The patient had an opportunity to ask questions regarding the treatment plan. All questions were answered. Physical exam, labs, and imaging were discussed and reviewed in detail. As well as risks, benefits, and discussion of treatment choices. No major barriers to understanding were identified. The patient expressed understanding and agreement with the above treatment plan. The patient was made aware they should contact our office by phone for worsening of their current condition, the appearance of new symptoms, or with any questions or concerns. Compliance is encouraged with any medications and follow up testing that is ordered. It is a privilege to be allowed the opportunity to participate in? your urological care.? Again, if you have any questions or concerns If you have any questions or concerns please do not hesitate to contact me. The office is [phone]. This note is constructed using voice recognition software. While every effort has been made to ensure accuracy induction coordination power engineer errors may have been included. Yours sincerely, JERMAINE Barone Coding Level of Care Code Est Pt Level 3 (23933) Complex EM visit Add On G2211 Diagnoses Nocturia R35.1 Enlarged prostate N40.0 Angiolipoma D17.9
== END 2025-08-07 08:24 | disposition home or self-care (01) ==
LOC: HO.HUSH 07:40
PROVIDERS: PCP Family Medicine; Visit Provider Nurse Practitioner Family
DX: R35.1 Nocturia (principal); N40.0 Benign prostatic hyperplasia without lower urinary tract symptoms; D17.9 Benign lipomatous neoplasm, unspecified; Z13.9 Encounter for screening, unspecified
CPT/HCPCS: 99213; G2211

== ENCOUNTER → 2025-08-07 07:39 | Outpatient (BNVA) | payer MEDICARE, OTHER, SELFPAY | PROVIDERS: PCP Family Medicine; Visit Provider Nurse Practitioner Family | DX: R35.1 Nocturia (principal); N40.0 Benign prostatic hyperplasia without lower urinary tract symptoms; Z13.9 Encounter for screening, unspecified | CPT/HCPCS: 81003; 99212 ==

== ENCOUNTER 2025-10-31 08:25 | Outpatient (AMB) | payer MEDICARE, OTHER, SELFPAY ==
--- NOTE | 2025-10-31 08:40 | A.OFFPC_ITS ---
Vital Signs 10/31/25 08:47 Height 6 ft 1 in Weight 175 lb 4 oz BMI 23.1 BP 116/80 Blood Pressure Location Lt brachial Position Sitting Respiration 14 Pulse 67 Pulse Source Pulse Oximeter Temp 97.6 F Temp Source Temporal Artery Scan Pulse Oximetry (%) 98 Oxygen Delivery Method Room Air Intake Visit Reasons: CPE / 15min. per Dr. Fields Intake Note: Nicol presents in the office today for his annual physical. Ethics Manager Required: No Allergies cat dander (CATS) Allergy (Unknown, Verified 10/31/25 08:45) RED EYES,DIFF BREATHING No Known Drug Allergies Allergy (Unknown, Verified 10/31/25 08:45) none Medication List - Last Reconciled 10/31/25 by Lazaro Fields MD ascorbic acid (vitamin C) 1 g PO DAILY cholecalciferol (vitamin D3) 25 mcg PO DAILY sodium,potassium,mag sulfates 17.5-3.13-1.6 gram (Suprep Bowel Prep Kit) 480 mL orally; FOR COLONOSCOPY PREP tamsulosin 0.8 mg (2 x 0.4 mg) PO DAILY 90 days turmeric root extract 1,000 mg PO DAILY zinc 22 mg PO DAILY Tobacco use date assessed: 10/31/25 Fall risk assessment: No Falls in past year Last assessed Fall Risk: 10/31/25 Dental Screening Dental Screen Date: 10/31/25 Did you have a dental visit in the last 12 months?: Yes Did you have a dental problem in the last 6 months where you did not have access to dental care?: No Was dental information given to patient?: Patient has dentist HPI CPE / 15min. per Dr. Fields HPI Details 70 y/o male presents for a CPE. Reports hx of back pain, hip pain - has been doing home exercises he learned f rom physical therapy and notes he feels okay currently. Reports FHx of HOCM. A1c today 5.1%. PFSH Medical History (Updated 10/31/25 @ 09:10 by Jose Oreilly) Screening for colon cancer Screening for prostate cancer Adult general medical exam Immunization counseling Atypical mole of neck Surgical History H/O colonoscopy History of tonsillectomy and adenoidectomy History of appendectomy Family History Mother Breast cancer Social History (Updated 10/31/25 @ 08:46 by Ivelisse Pop CMA) Household Members: Spouse Housing: Condominium Alcohol intake: current Patient Tobacco Use Status: Never used Tobacco e-Cigarette/Vaping Use: Never Used Second Hand Smoke Exposure: No service: No Current occupational status: retired Current occupational exposures/hazards: No Cognitive needs: No Hearing needs: No Vision needs: No Questionnaire PHQ-9 Over the last 2 weeks, how often have you been bothered by any of the following problems? 1. Little interest or pleasure in doing things: not at all 2. Feeling down, depressed, or hopeless: not at all 3. Trouble falling or staying asleep, or sleeping too much: not at all 4. Feeling tired or having little energy: not at all 5. Poor appetite or overeating: not at all 6. Feeling bad about yourself - or that you are a failure or have let yourself or your family down: not at all 7. Trouble concentrating on things, such as reading the newspaper or watching television: not at all 8. Moving or speaking so slowly that other people could have noticed. Or the opposite - being so fidgety or restless that you have been moving around a lot more than usual: not at all 9. Thoughts that you would be better off or of hurting yourself in some way: not at all Total score: 0 Depression Screening Interpretation: Negative Depression Screening Done: Yes 68068 - PHQ-9 Billing: Yes Source: Developed by Drs. Gurpreet Coe, Shahnaz Garcia, Brandon Otto and colleagues, with an educational anthony from [employer]. Thrive Questionnaire Date Thrive assessed: 10/31/25 I am a: Patient What is your living situation today?: I have a steady place to live Within the past 12 months, did the food you bought not last and you didn't have the money to get more?: Never true Within the past 12 months, did you worry whether your food would run out before you got money to buy more?: Never true Do you have trouble paying for medicines?: No Do you have trouble getting transportation to medical appointments?: No Do you have trouble paying your heating and electricity bill?: No Do you have trouble taking care of your child, family member or friend?: No Do you have trouble with day-to-day activities such as bathing, preparing meals, shopping, managing finances, etc.?: No Are you currently unemployed and looking for a job?: No Are you interested in more education?: No Please select the resources that you would like help with: None Currently or been in a relationship where the following occur: No concerns reported THRIVE Score: 0 AUDIT C Alcohol Use Questionnaire (AUDIT-C) 1. How often do you have a drink containing alcohol?: Monthly or less 2. How many drinks containing alcohol do you have on a typical day when you are drinking?: 1 or 2 3. How often do you have six or more drinks on one occasion?: Never Total Score: 1 TRACEE-7 AMB Questionnaire TRACEE-7 Date TRACEE - 7 assessed: 10/31/25 Feeling nervous, anxious, or on edge: 0 = Not at all Not being able to stop or control worryin = Not at all Worrying too much about different things: 0 = Not at all Trouble relaxin = Not at all Being so restless that it is hard to sit still: 0 = Not at all Becoming easily annoyed or irritable: 0 = Not at all Feeling afraid as if something awful might happen: 0 = Not at all Total TRACEE-7 score (0-4 normal; 5-9 mild; 10-14 moderate; 15-21 severe): 0 Source: Developed by Drs. Gurpreet Coe, Shahnaz Garcia, Brandon Otto and colleagues, with an educational anthony from [employer]. TRACEE-7 Assessment Billing TRACEE-7 Assessment Tool: TRACEE-7 Assessment 45877 Review of Systems Const Denies chills, Denies fatigue, Denies fever(s), Denies headache(s) and Denies weakness Eyes Denies change in vision ENT Denies dizziness and Denies headache(s) Card Denies chest pain, Denies lightheadedness, Denies dyspnea and Denies other (Palpitations) Resp Denies cough, Denies dyspnea, Denies wheezing and Denies other ( shortness of breath) GI Denies abdominal pain, Denies melena, Denies hematochezia, Denies change in bowel habits, Denies dyspepsia and Denies nausea Denies hematuria and Denies dysuria Musc Denies numbness and Denies tingling Skin/Breast Denies rash, Denies unusual bruising and Denies wounds Neuro Denies dizziness, Denies headache(s), Denies numbness, Denies Sensory deficit (Neuro), Denies tingling, Denies paresthesias and Denies weakness Psych Denies anxiety and Denies depression Endo Denies fatigue Cali/Lymph Denies easy bleeding and Denies easy bruising Aller/Immun Denies wheezing Physical exam (Primary Care) Vital Signs: Last Vital Signs Temp 97.6 F 10/31/25 08:47 Pulse 67 10/31/25 08:47 Resp 14 10/31/25 08:47 BP 116/80 10/31/25 08:47 Pulse Ox 98 10/31/25 08:47 Oxygen Delivery Method Room Air 10/31/25 08:47 BMI result Body Mass Index 23.1 Tobacco/Smoking Status: Tobacco use Status Tobacco use date assessed 10/31/25 10/31/25 08:52 Patient Tobacco Use Status Never used Tobacco 10/31/25 08:46 e-Cigarette/Vaping Use Never Used 10/31/25 08:46 PHQ-9: PHQ-9 Score PHQ-9: Total score 0 10/31/25 09:01 Depression Screening Interpretation: Negative Thrive Assessment: Date of Thrive Assessment Date Thrive assessed 10/31/25 10/31/25 08:52 Currently or been in a relationship where the following occur: No concerns reported Const General: no acute distress and well developed Nutritional Appearance: well nourished Orientation/consciousness: patient oriented x3 HENMT Head: Yes normocephalic and Yes atraumatic Ears: hearing grossly normal bilaterally and TM's normal bilaterally General nose exam: Normal external nose present and Normal nares present Mouth: Normal oral and palatal mucosa present and moist mucous membranes Teeth and gingiva: dentition normal Throat: Yes posterior oropharynx normal Eyes General: appearance normal, both eyes and all related structures Pupils: Equal, round and reactive pupils present EOM: EOMs intact bilaterally Neck Neck: Yes normal visual inspection, Yes no lymphadenopathy and Yes trachea midline Thyroid: Thyroid normal Carotids: no bruits Lymphatic: no lymphadenopathy noted Chest Chest palpation & inspection: normal inspection of the chest Resp Effort & Inspection: normal respiratory effort Auscultation: clear to auscultation bilaterally Cardio Rate: regular rate Rhythm: regular rhythm Heart sounds: S1 normal heart sound present, S2 normal heart sound present, no gallops, no murmurs and no rubs Bruits: no abdominal aortic bruits and no carotid bruits GI Palpation (GI): No Abdominal aortic bruit present, Soft to palpation, nontender, No hepatosplenomegaly present and No Rebound tenderness present Auscultation: normal bowel sounds General: Yes no CVA tenderness Back/Spine/Pelvis Back: no CVA tenderness Cervical Spine: cervical ROM normal and No Cervical spine tenderness Thoracic/Lumbar Spine: thoraco-lumbar ROM normal, No pain with thoraco-lumbar ROM, No thoracic spinal tenderness and No lumbar spinal tenderness Skin Lesions: no lesions Rashes: no rashes Trauma: no lacerations or abrasions Wounds: no wounds Nails: normal Neuro General: patient oriented x3 and gait normal Cranial nerves: Yes Equal, round and reactive pupils present Cognition (Neuro): normal cognition Gait exam (Neuro): Normal gait present Motor exam (neuro): 5/5 motor strength present throughout Sensory Exam: No Sensory deficit (Neuro) Deep tendon reflexes (DTR's): Right patellar reflex intensity grade: 2+ and Left patellar reflex intensity grade: 2+ Extrem General: Yes normal to inspection and No edema Psych Appearance: grossly normal Affect: normal affect Attitude: cooperative Thought process: Normal thought process present Coding Level of Care Code Est Pt Level 3 (67068) Est Pt Prev Care >65y(52202) Diagnoses Adult general medical exam Z00.00 Back pain M54.9 Hip pain M25.559 Screening for prostate cancer Z12.5 Screening for colon cancer Z12.11 Family history of hypertrophic cardiomyopathy Z82.49 Additional Codes TRACEE-7 Assessment Billing - TRACEE-7 Assessment Tool: TRACEE-7 Assessment 07728 ([id number]) PHQ-9 - 95126 - PHQ-9 Billing: Yes ([id number]) Assessment & Plan Assessment & Plan (1) Adult general medical exam: Code(s): Z00.00 - Encounter for general adult medical examination without abnormal findings Category: Medical Plan: 70-year-old male presents for complete physical exam (2) Back pain: Code(s): M54.9 - Dorsalgia, unspecified Category: Medical Plan: Back and right lateral hip pain Currently at baseline. Patient had had a flare-up of this and received a steroid injection [facility]. Also had physical therapy. Patient was asking about MRI today. No longer has flare-up and has only faint, mild symptoms He will let me know if this flares up again. Would start physician directed care and consider physical therapy and/or injection therapy again. If not improved or new concerns, would get MRI (3) Hip pain: Code(s): M25.559 - Pain in unspecified hip Category: Medical Plan: As above (4) Screening for prostate cancer: Code(s): Z12.5 - Encounter for screening for malignant neoplasm of prostate Category: Medical Plan: Followed by urology PSA 2.27, in normal range Follow-up with urology as recommended (5) Screening for colon cancer: Code(s): Z12.11 - Encounter for screening for malignant neoplasm of colon Category: Medical Plan: Had given patient phone number for Gastroenterology at last visit. He will call for an appointment (6) Family history of hypertrophic cardiomyopathy: Code(s): Z82.49 - Family history of ischemic heart disease and other diseases of the circulatory system Category: Medical Plan: Mother and sister both diagnosed with hypertrophic cardiomyopathy Will send her for an echocardiogram. Will get EKG at next visit Orders: Orders Complete Blood Count Auto Diff Today Z00.00 - Encounter for general adult medical examination without abnormal findings TSH reflex Free T4 Today Z00.00 - Encounter for general adult medical examination without abnormal findings AMB EKG-In Office Today Z82.49 - Family history of ischemic heart disease and other diseases of the circulatory system Comprehensive Jesse. Panel Fast Today Z00.00 - Encounter for general adult medical examination without abnormal findings Microalbumin, Random (w Creat) Today I10 - Essential (primary) hypertension Lipid Panel Today Z00.00 - Encounter for general adult medical examination without abnormal findings UA CC w/rflx Micro + Cult Today Z00.00 - Encounter for general adult medical examination without abnormal findings CA echo transthoracic complete Today Z82.49 - Family history of ischemic heart disease and other diseases of the circulatory system
[2025-10-31 08:47] VITALS: BP 116/80; PULSE 67; RESP 14; TEMP 36.4; O2SAT 98; BMI 23.1
--- OUTSIDE RECORDS SUMMARY | 2025-10-31 08:49 | XMS_ITS | Continuity of Care Document ---
Author Organization [place] - [facility], [facility] - [place] Address [address] [place] [address] Assessment No assessment recorded. Plan of Treatment Reminders Order Date Submit Date Provider Last Modified By Organization Details Last Modified Time Details Appointments None recorded. Lab None recorded. Referral physical therapist referral - Core/Hip girdle/Qu ad strengthe liza Glute Activatio n/strengt hening Rotation/ Anti-rota tion stability exercises Adductor flexibili ty/releas e Foot/Ankl e/Knee/Hi p alignment Pelvic alignment into neutral Postural cueing and biomechan ics Progress to plyos and SL exercises 2024 025 [facility]iel [facility], [address] , [place], [address], 5 08:17:37 Procedures None recorded. Surgeries None recorded. Imaging XR, hip + pelvis, unilatera l, 2 or 3 view - room 2 right hip 2024 025 mariel [facility], [address], [facility] [address], [address], 5 08:17:37 Medication Orders None recorded. Patient TargetsNo targets recorded. Patient InstructionsNo instructions recorded. Reason for Referral Physical Therapist Referral for Trochanteric bursitis of right hip Core/Hip girdle/Quad strengthening Glute Activation/strengtheningRotation/Anti-rotation stability exercisesAdductor flexibility/releaseFoot/Ankle/Knee/Hip alignmentPelvic alignment into neutral Postural cueing and biomechanicsProgress to plyos and SL exercises Referring Physician: Justino Malcolm, Orthopedic Surgery, Encounter Date: 08/28/2025 Results Created Date Observation Date Name Description Value Unit Range Abnormal Flag Note LastModifiedBy Organization Detail LastModifiedTime 08/28/2008/28/2025 XR, hip + pelvi s, unila teral , 2 or 3 view http:/ [email or web address] ?Encry pted=s hAaTro YD8dLq bEUv6g %2BXZw aYqtaq 0bqfl% 2Fg9IQ a4ajBk vP9nXo QUaueC m3YtLR FvZlgJ JJ8mAn HZtai3 9k4825 AC0Klb XqCUKW jKiQtr MwF INTERFACE [facility] Office [address] [facility] [address], [place], [address], 08/28/2025 10:33:30 08/28/2008/28/2025 XR, hip + pelvi s, unila teral , 2 or 3 view http:/ [email or web address] ?Encry pted=s hAaTro YD8dLq bEUv6g %2BXZw aYqtaq 0bqfl% 2Fg9IQ a4ajBk vP9nXo QUaueC m3YtLR FvZlgJ JJ8mAn HZtai3 1z9286 AC0Klb XqCUKW jKiQtr MwF INTERFACE [facility] Office [address] [address], [place], [address], 08/28/2025 10:33:32 Result Notes Documentation Provider Name and Address Organization Details Recorded Time Xr, Hip + Pelvis, Unilateral, 2 Or 3 View : [email or web address] Encrypted=eeXlAbzEA4wCxqB Uv6g%0RXVbdUdgxu8zzvv%2Fg 8CHa4lvHpyH5sEoQFrooTv9Oy CPTkRjjNDL0uBfUOhus27g958 2RR8EhbBmATDWwIcOgaYcD Not Available [facility] 08/28/2025 10:33: 31 Xr, Hip + Pelvis, Unilateral, 2 Or 3 View : [email or web address] Encrypted=reXaHyfEH0iDdmF Uv6g%4OYZklUsgtl4kmpe%2Fg 9GGn9mgJbbF4tOuCMfsgUt2Lj MDOmVhiOIN3rLdRInis29v969 7XF9IssUcUXZQgIdQjfGcN Not Available [facility] 08/28/2025 10:33: 33 Problems Name Problem SNOMED Code Status Onset Date Resolution Date Notes Provider Name and Address Organization Details Recorded Time Pain of hip region 82683391 Active 2024 Justino Malcolm PA-C [address], [facility] [place], [address], [facility] 5 10:25:36 Trochanteri c bursitis of right hip 6999547875482 00 Active 2024 Justino Malcolm PA-C [address], [place], [address], [facility] 5 10:57:26 Osteoarthri tis of right hip joint 5743587072496 07 Active 2024 Justino Malcolm PA-C [address], [place], [address], [facility] 5 10:57:42 Problem Notes None recorded. Procedures Surgical History Date Name Laterality Status Provider Name and Address Organization Details Recorded Time Hip Kenalog 1cc Injection, L/R completed Justino Malcolm PA-C [address], [place], [address], [facility] 08/28/2025 11:41:05 Imaging Results None recorded. Procedure Notes None recorded. Medical Equipment None Reported. Allergies No known drug allergies Medications Name Sig Start Date Stop Date Status Note LastModified by Organization Details LastModified Time fluorouracil 5 % topical cream PLEASE SEE ATTACHED FOR DETAILED DIRECTIONS active Not Available Not Available N ot Available tamsulosin 0.4 mg capsule TAKE 2 CAPSULES BY MOUTH EVERY DAY active Not Available Not Available No t Available sodium,potas sium,mag sulfates 17.5 gram-3.13 gram-1.6 gram oral soln TAKE ORALLY FOR COLONOSCOPY PREP DIRECTED active Not Available Not Available No t Available Vitals Date Recorded Body height Body mass index (BMI) Body weight Provider Name and Address Organization Details Last Updated DateTime 08/28/2025 185.42 cm 23.1 kg/m2 14781.66 g Justino Malcolm PA-C [address], [place], [address], [facility] 08/28/2025 10:23:53 Social History Question Answer Notes LastModified by [employer] Details LastModified Time Tobacco Smoking Status Never Smoker Justnio Malcolm PA-C [address], [place], [address], [facility] 08/28/2025 10:24:41 What Is Your Relationship Status? Single Information not available 08/28/2025 Sex: Unknown Functional Status Question Answer Note LastModified by [employer] Details LastModified Time How many times per week do you consume alcohol? 1-2 times per week Information not available 08/28/2025 Do you use any illicit or recreational drugs? No Information not available 08/28/2025 What is your level of alcohol consumption? Occasional Information not available 08/28/2025 Mental Status None recorded. Family History Nothing Reported. Medical History Condition Response Allergies/Hayfever N Coronary Artery Disease N Anxiety/Depression N Breathing or lung disorders N Emphysema N Nerve Disorders N Thyroid Problems N COPD N Pacemaker N Anemia N Kidney/Bladder Problems N Vascular Disease N Heart Trouble N Heart Attack ([place]) N Gastrointestinal Disease N Cholesterol N Diabetes N Autoimmune disease N Inflammatory Joint disease N Bleeding Disorder N Orthotics N Arthritis N Seizures/Epilepsy N Blood Clot N AIDS/HIV N Congestive Heart Failure (CHF) N Acid Reflux (GERD) N Cancer N Stroke N Asthma N Circulation Problems N Peripheral Vascular Disease N Sleep Apnea N Hepatitis N Heart Disease N Rheumatoid Arthritis N Arrhythmia N Pulmonary Embolism N Headaches N Fibromyalgia N Hypertension N Osteoporosis N Past Encounters Encounter ID Performer Location Encounter Start Date Encounter Closed Date Diagnosis/Indication Diagnosis SNOMED-CT Code Diagnosis ICD10 Code Diagnosis IMO Codes Diagnosis Note [id number] Justino Malcolm PA-C [facility] [place] [address] [place] [address] 08/28/2025 09:58:51 09/04/2025 08:17:37 Pain of hip region 67574046 M25.551 46906557 Trochanter ic bursitis of right hip 7915149643 39712 M70.61 2792264 Osteoarthr itis of right hip joint 5497516250 51954 M16.11 [id number] Health Concerns Section Related Observation LastModified by Organization Detai ls LastModified Time None Recorded Concern Status LastModified by Organization Details LastModified Time None Recorded Payers Encounter Date Sequence Insurance Name Policy Number Policy Clrak Covered Member ID Clark Member ID Guarantor Name 08/28/2025 1 [place]IC[place]: [employer] Shilo Kasie Mikie [id number] Shilo Deluna 08/28/2025 2 [employer] [place] - PLAN 1 (MEDICARE SUPPLEMENT) [id number] Shilo Kasie Mikie [id number] Shilo Mikie Notes Date Note Type Note Provider Name and Address Organization Details Recorded Time 08/28/2025 text/html I am seeing the patient today under the supervision of Dr. Wong who was available but who did not see the patient for today's Urgent Care walk in visit. HPI: Patient is a 70-year-old male comes the office today for evaluation chief complaint of right hip pain. He reports last 3 to 4 weeks gradual increase symptoms the lateral aspect of the hip. He has difficulty sitting sleeping on that side pain seems to be lateral refers into the lateral thigh. He had some mild low back symptoms this is since gone away but he still having some focal tenderness in the lateral aspect of the hip. He denies any groin pain currently he has had to give up some of the activities he enjoys like running. Past family, medical, social history and review of systems has been reviewed, updated and signed by me and is located in the patient s chart. PHYSICAL EXAMINATION: The patient is well appearing and in no apparent distress. Alert and oriented x3. Gait is symmetric. Physical exam findings of the right hip show some mild focal tenderness in the greater trochanteric bursa slightly anterior, he has a negative passive logroll maneuver no pain with axial loading of the hip and internal/external rotation at 45 over 90 degrees, no pain with cross hip adduction, lumbar spine exam shows essentially near full range of motion without any radicular symptoms negative straight leg raise test. Peripheral, vascular, lymphatic examination, skin, neurological, coordination, reflexes, sensation are within normal limits. X-RAY REPORT: X-rays were ordered, obtained and independently reviewed today at [facility] 2 views of the right hip show moderate hip arthritis with subchondral cystic changes in the superior acetabulum mild flattening of the femoral head. IMPRESSION: Right hip osteoarthritis, trochanteric bursitis, discogenic right leg pain PLAN: Discussed the nature of the findings I believe his hip symptoms are multifactorial we talked about physical therapy for the hip and back ultimately sided to treat the trochanteric bursa symptoms today with trochanteric hip bursa injection. If he does not respond to the injection I would recommend physical therapy for the back with maybe a Medrol Dosepak going forward. Justino Malcolm PA-C [address], [place], [address], [facility] 08/28/2025 11:42:00
--- OUTSIDE RECORDS SUMMARY | 2025-10-31 08:49 | XMS_ITS | Data Portability ---
Author Organization [place] - [facility] Address [address] [place] [address] Assessment No assessment recorded. Plan of Treatment [...] plyos and SL exercises 2024 025 mariel [facility] - [facility], [address] [facility], [place], [address], 5 08:17:37 Procedures None recorded. Surgeries None recorded. Imaging XR, hip + pelvis, unilatera l, 2 or 3 view - room 2 right hip 2024 025 mariel [facility], [address], [facility] [address], [address], 5 08:17:37 Medication Orders None recorded. Patient [...] a4ajBk vP9nXo QUaueC m3YtLR FvZlgJ JJ8mAn HZtai3 1o5417 AC0Klb XqCUKW jKiQtr MwF INTERFACE [facility] Office [address] [facility] [address], [address], 08/28/2025 10:33:30 08/28/2008/28/2025 XR, hip + pelvi s, unila teral , 2 or 3 view http:/ [email or web address] ?Encry pted=s hAaTro YD8dLq bEUv6g %2BXZw aYqtaq 0bqfl% 2Fg9IQ a4ajBk vP9nXo QUaueC m3YtLR FvZlgJ JJ8mAn HZtai3 2o6300 AC0Klb XqCUKW jKiQtr MwF INTERFACE [facility] Office [address] [facility] [address], [place], [address], 08/28/2025 10:33:32 Result Notes Documentation Provider Name and Address Organization Details Recorded Time Xr, Hip + Pelvis, Unilateral, 2 Or 3 View : [email or web address] Encrypted=eoAcRiwXG7gTuqS Uv6g%0WKRsyXjsob1enzq%2Fg 5CUl8xlTyrM1pGqNTcxbOs6Ie MJLoTokEFT5bCiUPrwy04s512 3SA8HnkZdTXHTrZjLyzCiX Not Available [facility] 08/28/2025 10:33: 31 Xr, Hip + Pelvis, Unilateral, 2 Or 3 View : [email or web address] Encrypted=taHnYkjUI3yNcnC Uv6g%4WEUxgMgmaa2givg%2Fg 9BAa6tgUyaT9rYlQDvzdBr7Nb PLFhXluZGC1iAeZRuuh43u075 0RE1YzhArNAFLzYkCmjIkY Not Available [facility] 08/28/2025 10:33: 33 Problems Name Problem SNOMED Code Status Onset Date Resolution Date Notes Provider Name and Address Organization Details Recorded Time Pain of hip region 86105053 Active 2024 Justino Malcolm PA-C [address], [place], [address], [facility] 5 10:25:36 Trochanteri c bursitis of right hip 2032262579299 00 Active 2024 Justino Malcolm PA-C [address], [place], [address], [facility] 5 10:57:26 Osteoarthri tis of right hip joint 7848851103936 07 Active 2024 Justino Malcolm PA-C [address], [place], [address], [facility] 5 10:57:42 Problem Notes None recorded. Procedures Surgical History Date Name Laterality Status Provider Name and Address Organization Details Recorded Time Hip Kenalog 1cc Injection, L/R completed Justino Malcolm PA-C [address], [place], [address], [facility] 08/28/2025 11:41:05 Imaging Results [...] Updated DateTime 08/28/2025 185.42 cm 23.1 kg/m2 37926.66 g Justino Malcolm PA-C [address], [place], [address], [facility] 08/28/2025 10:23:53 Social History Question Answer Notes LastModified by [employer] Details LastModified Time Tobacco Smoking Status Never Smoker Justino Malcolm PA-C [address], [place], [address], [facility] 08/28/2025 10:24:41 What Is Your Relationship Status? Single Information not available 08/28/2025 Sex: Unknown Functional Status Question Answer Note LastModified by [employer] Details LastModified Time How many times per week do you consume alcohol? 1-2 times per week Information not available 08/28/2025 Do you use any illicit or recreational drugs? No Information not available 08/28/2025 What is your level of alcohol consumption? Occasional Information not available 08/28/2025 Mental Status None recorded. Family History Nothing Reported. Medical History Condition Response Coronary Artery Disease N Anxiety/Depression N Emphysema N COPD N Pacemaker N Vascular Disease N Heart Trouble N Gastrointestinal Disease N Autoimmune disease N Inflammatory Joint disease N Orthotics N Arthritis N Blood Clot N Acid Reflux (GERD) N Cancer N Stroke N Circulation Problems N Rheumatoid Arthritis N Arrhythmia N Headaches N Fibromyalgia N Allergies/Hayfever N Breathing or lung disorders N Nerve Disorders N Thyroid Problems N Kidney/Bladder Problems N Anemia N Heart Attack (CT) N Cholesterol N Diabetes N Bleeding Disorder N Seizures/Epilepsy N AIDS/HIV N Congestive Heart Failure (CHF) N Asthma N Peripheral Vascular Disease N Sleep Apnea N Hepatitis N Heart Disease N Pulmonary Embolism N Hypertension N Osteoporosis N Past Encounters Encounter ID Performer Location Encounter Start Date Encounter Closed Date Diagnosis/Indication Diagnosis SNOMED-CT Code Diagnosis ICD10 Code Diagnosis IMO Codes Diagnosis Note [id number] Justino Malcolm PA-C [facility] [place] [address] [place] [address] 08/28/2025 09:58:51 09/04/2025 08:17:37 Pain of hip region 71646089 M25.551 [id number] Trochanter ic bursitis of right hip 0295707398 60371 M70.61 0140760 Osteoarthr itis of right hip joint 8987052033 79218 M16.11 [id number] Health Concerns Section Related Observation LastModified by Organization Detai ls LastModified Time None Recorded Concern Status LastModified by Organization Details LastModified Time None Recorded Advance Directives Directive None Recorded Payers Insurance Date Sequence Insurance Name Policy Number Policy Clark Covered Member ID Clark Member ID Guarantor Name 08/28/2025 1 [place]: [email or web address] Shilo Ferro Mikie [id number] Shilo Deluna 09/04/2025 2 [employer] [place] - PLAN 1 (MEDICARE SUPPLEMENT) [id number] Shilo Ferro Mikie [id number] Shiloliliane Venturae Notes Date Note Type Note Provider Name [...] ordered, obtained and independently reviewed today at [facility] [place] 2 views of the right hip show [...] Dosepak going forward. Justino Malcolm PA-C [address], [place], [address], [facility] 08/28/2025 11:42:00
== END 2025-10-31 09:12 | disposition home or self-care (01) ==
LOC: HO.HMCFM 08:26
PROVIDERS: PCP Family Medicine; Visit Provider Family Medicine
DX: Z00.00 Encounter for general adult medical examination without abnormal findings (principal); M54.9 Dorsalgia, unspecified; M25.551 Pain in right hip; Z12.5 Encounter for screening for malignant neoplasm of prostate; Z12.11 Encounter for screening for malignant neoplasm of colon; Z82.49 Family history of ischemic heart disease and other diseases of the circulatory system; R73.03 Prediabetes

== ENCOUNTER → 2025-10-31 08:25 | Outpatient (BNVA) | payer MEDICARE, OTHER, SELFPAY | PROVIDERS: PCP Family Medicine; Visit Provider Family Medicine | DX: Z00.00 Encounter for general adult medical examination without abnormal findings (principal); M54.9 Dorsalgia, unspecified; M25.559 Pain in unspecified hip; Z82.49 Family history of ischemic heart disease and other diseases of the circulatory system; Z13.31 Encounter for screening for depression; Z13.39 Encounter for screening examination for other mental health and behavioral disorders; Z13.1 Encounter for screening for diabetes mellitus | CPT/HCPCS: 83036; 96127; 99397 ==